=== PATIENT | female | born 1945 | race Caucasian/White ===

== ENCOUNTER 2021-11-12 06:32 | Day surgery (SDC) | payer MEDICARE, BC, SELFPAY ==
[2021-11-12] VITALS (13 sets, daily range): BP systolic 97–171; BP diastolic 59–85; PULSE 62–92; RESP 12–16; TEMP 36.4–36.7; O2SAT 91–97; BMI 25.9
[2021-11-12] MEDS: LACTATED RINGERS 1000 ML 1,000 ML 100 ML IV (07:00)
[2021-11-12] MEDS: SODIUM CHLORIDE 0.9 % (FLUSH) 10 ML SYRINGE IVF (07:20)
[2021-11-12] MEDS: CEFAZOLIN 2 GM in 0.9 % SODIUM CHLORIDE Mini-bag 100 ML IVPB (08:15)
--- NOTE | 2021-11-12 08:33 | SUR.OPER ---
Patient transfered via bed to OR2 from Same Day Surgery. Patient was assisted to OR table. Patient was covered by warm blankets x2 to provide warmth and comfort.
--- NOTE | 2021-11-12 08:47 | SUR.OPER ---
Patient trasfered via bed from Same Day Surgery to OR2. Patient was assisted to the OR bed. Patient covered by warm blankets x2 for warmth and comfort.
--- NOTE | 2021-11-12 08:48 | PM.ORPRC ---
Procedure Note Date of procedure: 11/12/21 Procedure: PREOPERATIVE DIAGNOSIS: 1. Left knee medial and lateral meniscus tear POSTOPERATIVE DIAGNOSIS: 1. Left knee medial and lateral meniscus tear PROCEDURE: 1. Left knee arthroscopic partial medial and lateral menisectomy SURGEON: Rosalino Norris M.D. [employer]OP STENOGRAPHER: Mario Mckeon PA-C. Of note, an clinical assistant was critical for this case to aid in patient positioning, knee manipulation, instrument exchange, and closure. ANESTHESIA: Spinal EBL: 2ml TOURNIQUET: 30 min at 300 torr COMPLICATIONS: None evident INDICATIONS: The patient is a pleasant 76-year-old female who has experienced left knee pain particularly with any twisting or turning. Physical exam was concerning for medial and lateral meniscus tear, this was confirmed on MRI. Additionally, attempted nonoperative management has been tried, and failed. Thus, surgery was recommended. FINDINGS: Complex tearing posterior horn to midbody medial meniscus. Crystalline deposits seen within the meniscal tissue as well. Grade 3 chondromalacia medial femoral condyle. ACL and PCL were intact. Lateral compartment showed complex tearing of the central portion posterior horn to midbody even involving the anterior horn. Posterior root was intact. Anterior root intact. Grade 2 chondromalacia lateral femoral condyle. Patellofemoral compartment showed grade 4 chondromalacia under the patella median ridge. Grade 3 chondromalacia broadly for the rest the patella. Trochlear groove was relatively well preserved. No loose bodies evident. DESCRIPTION OF PROCEDURE: After a thorough discussion of risks, benefits, and alternatives, the patient was brought to the operating room and placed upon the operating table. Induction of anesthesia was undertaken as previously noted. 1 g IV Ancef was administered within 1 hr of incision preoperatively. Appropriate time-out was performed identifying proper patient, site, and procedure. The left lower extremity was prepped and draped in the appropriate sterile fashion using ChloraPrep. The limb was exsanguinated and tourniquet inflated. Anterolateral and anteromedial portals were established with an 11 blade, and a diagnostic arthroscopy was performed. This identified the findings as noted above. Following the diagnostic arthroscopy, a partial medial and lateral menisectomy was performed with the combination of basket forceps and a motorized shaver. Following this, the meniscus was re-probed and found to be stable. Approximately 50-60 % of the overall medial meniscus required resection. Approximately 10-15 % of the lateral meniscus required resection. At this stage, the shaver was reinserted into the suprapatellar pouch and all remaining meniscal debris was evacuated. Instruments were removed, excess fluid was drained, and closure performed with 4-0 Monocryl with Steri-Strips. Dressings were applied, the tourniquet deflated, and the patient was awoken from anesthesia and transferred to the PACU in stable condition. PLAN: 1. Weightbear as tolerated operative extremity. Crutch / walker ambulation assistance PRN. Straight leg raise to be initiated starting tomorrow by the patient. 2. Ice, acetominophen and/or ibuprofen, and Percocet for pain as needed. 3. Knee range of motion and quad sets/straight leg raise regularly 4. Follow up with PA visit in 7-10 days. for a wound check. Initiate physical therapy at that time
[2021-11-12] MEDS: ROPIVACAINE 0.5% 30 ML 150 MG INJECTION (08:50)
--- NOTE | 2021-11-12 09:02 | W.ANESCHARGE ---
Anesthesia Charges Start Date/Time Anesthesia Start Date: 11/12/21 Anesthesia Start Time: 07:56 Stop Date/Time Anesthesia Stop Date: 11/12/21 Anesthesia Stop Time: 09:00 Summary Emergency: No Extremes of Age: Over 70-CPT 10131
--- NOTE | 2021-11-12 09:22 | SUR.PHASEI ---
PT. VSS, TRANSFER PT. TO SDS VIA CART.
[2021-11-12] MEDS: IBUPROFEN 200 MG TABLET 400 MG PO (10:40)
== END 2021-11-12 11:05 | disposition home or self-care (01) ==
PROVIDERS: PCP Internal Medicine; Visit Provider Orthopaedic Surgery Sports Medicine
PROC: (CPT 29870; principal; 2021-11-12 07:45)
DX: M23.242 Derangement of anterior horn of lateral meniscus due to old tear or injury, left knee (principal); M23.222 Derangement of posterior horn of medial meniscus due to old tear or injury, left knee; M23.252 Derangement of posterior horn of lateral meniscus due to old tear or injury, left knee
CPT/HCPCS: 29880; 01400; 99100; A9270; J0690; J2250; J2405; J2704; J2795; J3010; J7120

== ENCOUNTER 2021-12-30 08:45 | Outpatient (RCR) | payer MEDICARE, BC, SELFPAY ==
--- NOTE | 2021-11-21 11:56 | PT.OPEX ---
PT [place] Outpatient Eval PT [facility] Outpatient Eval Start: 11/21/21 07:26 Freq: Status: Active Protocol: Document 11/21/21 07:26 KLV (Rec: 11/21/21 11:55 KLV [id number]) E-signed By Keila Pena PT Physical Therapy Outpatient Evaluation Insurance Information Recert Due Date 02/13/22 Insurance Name Medicare B,Other; See Comments Insurance Information/Comments [place] Medical Diagnosis S/P left knee arthroscopy DOS 11/12/21 Treating Diagnosis Left knee pain, limited left knee ROM, antalgic gait, gross LE weakness Referring Mario Krishnamurthy Subjective Subjective Shirley 1 week postoperative left knee arthroscopic partial medial and lateral meniscectomy (DOS-11/12/2021). Approximately 50-60% of overall medial meniscus resected, 10-15% lateral meniscus resected. Was seen by Mario Mckeon yesterday for follow up. Denies fevers, chills, or aches. Denies numbness/tingling distally. She reports knee has felt stiff and painful to bear weight but has been using SEC (in L UE). She has been doing stairs with step to pattern. Pain is located mainly in medial aspect of knee with mild swelling noted. Goals are to be able to walk, stand, negotiate stairs and return to volunteering with [employer] without use of AD. PMH: hypertension, arthritis, osteopenia Pain Comments 4-7 depending on movement Date of Last Physician Visit 11/20/21 Date of Next Physician Visit 12/19/21 Current Work Status Retired Objective Other/Pertinent Objective Knee ROM: -L 0-12-56 -R 0-125 Quad set: good however 12 deg short of full extension SLR: able to perform x10 however 12 deg short of full extension Gait: minimal stance time L LE , mid foot strike, limited TKE , initial use of cane in L UE, transitioned to use of SEC in R UE Denies N/T distally Incisions (2 scope holes) covered with steri strips: no s/s of infection or DVT Mild swelling medial joint line Mild bruising mid medial thigh from tourniquet Stairs: step to pattern Sit to stand: L LE propped out straight, no assist at this time d/t pain Functional Test Performed & Score LEFS: 40/80 Assessment Assessment/Impression Pt presents with signs and symptoms consistent with s/p left knee arthroscopy (medial and lateral meniscectomy). DOS : 11/12/21. Anticipated deficits/impairments in pain, ROM, and strength. Pt would benefit from skilled PT interventions to facilitate return to PLOF and walk/ standing/stair negotiation without use of AD, don/doff shoes/sock, ease of transitions, return to volunteering through [employer]. Primary Functional Limitations walk/standing/stair negotiation without use of AD, return to volunteering through [employer] Plan of Care Rehabilitation Potential Good Physical Therapy Goals By 4 weeks (12/19/21) Pt will be able to ascend/ descend 1 flight of stairs in order to perform ADLs pain free. Pt will demonstrate full and pain free knee ROM in order to perform all ADLs including don/doffing shoes/socks By 8 weeks (01/16/22) Pt will exhibit 9 pt improvement in LEFS Outcome measure to demonstrate functional improvement and progress towards goals. Pt will tolerate gradual progression back to ADLs with <2/10 pain Patient will transition from cane to independent gait with normal mechanics. Patient will be able to ambulate on uneven surface and squat w/out use of AD with good mechanics in order to return to volunteering through [employer]. Treatment Plan/Direct Interventions Gait Training,Ice/Cold/ Vasopneumatic,Joint Mobilization,Manual Therapy, Neuromuscular Re-ed,Self-Care/ Home Management,Therapeutic Activities,Therapeutic Exercises Frequency/Duration 1x/wk for 6 weeks with additional 4 sessions prn based on progress Patient Will Be Discharged From Therapy Completion of LTG(s), Independent w/HEP, Independently Progressing Evaluation Billing Untimed Code Treatment Minutes 12 Complexity Low Certification Information Initial Certification Date 11/21/21 Ending Certification Date 02/13/22 Provider Signature Shows Agreement With POC & Medical Necessity Physician Comment/Change Comment or Changes Physician NPI Number #
== END 2022-03-10 13:14 | disposition home or self-care (01) ==
PROVIDERS: PCP Internal Medicine; Visit Provider Physician Assistant Surgical
DX: Z98.890 Other specified postprocedural states (principal); Z51.89 Encounter for other specified aftercare
CPT/HCPCS: 97110; 97140; 97161

== ENCOUNTER 2022-01-19 14:49 | Outpatient (CLI) | payer MEDICARE, BC, SELFPAY ==
--- NOTE | 2022-01-19 15:00 | CRLHL7_ITS ---
For Patients: As a result of the Cures Act, medical imaging exams and procedure reports are released immediately into your electronic medical record. You may view this report before your referring provider. If you have questions, please contact your health care provider. BILATERAL SCREENING MAMMOGRAM WITH COMPUTER-AIDED DETECTION AND TOMOSYNTHESIS TECHNIQUE: CC and MLO views were obtained. These mammographic images have been obtained using full-field digital technique. These mammographic images were interpreted with the benefit of computer-aided detection. Breast Tomosynthesis was used in this interpretation. COMPARISON FILM: 12/23/20, 12/13/19, 11/08/18. FINDINGS: The breasts are heterogeneously dense, which may obscure small masses IMPRESSION: There is no radiographic evidence for malignancy. ASSESSMENT: BI-RADS Category 1: Negative RECOMMENDATION: Routine screening mammogram in 1 year. A lay language report of this examination will be provided to the patient. Ramon Cortes M.D. Diagnostic/Nuclear Medicine Radiologist [email or web address] JONNA/jj Transcribed: 3:14 p.mClarisse KIANNA/Dictated by: Ramon Cortes MD @ 01/20/2022 8:14:00 AM (Electronically Signed)
== END 2022-01-19 14:50 | disposition home or self-care (01) ==
LOC: MAMMO 14:50
PROVIDERS: PCP Internal Medicine; Visit Provider Internal Medicine
DX: Z12.31 Encounter for screening mammogram for malignant neoplasm of breast (principal)
CPT/HCPCS: 77063; 77067

== ENCOUNTER 2022-09-14 07:45 | Outpatient (CLI) | payer MEDICARE, BC, SELFPAY ==
--- OUTSIDE RECORDS SUMMARY | 2022-09-14 14:49 | XMS_ITS | Continuity of Care Document ---
Author Name Unknown Organization [facility] Address [address] [place] [address] Phone Care Team Providers Care Trim Mechanic Name Role Phone Unavailable Unavailable Unavailable Allergies, Adverse Reactions, Alerts Substance Reaction Status Criticality Sulfa (Sulfonamide Antibiotics) Active No Information Sulfa (Sulfonamide Antibiotics) Active No Information Medications Medication Instructions Dosage Effective Dates (start - stop) Status Comments AMLODIPINE BESILATE (unknown strength) Not Available - Active FLUTICASONE PROPIONATE MICRO (unknown strength) Not Available - Active MODAFINIL (unknown strength) Not Available - Active MONTELUKAST SODIUM (unknown strength) Not Available - Active OMEPRAZOLE (unknown strength) Not Available - Active RALOXIFENE HCL (unknown strength) Not Available - Active Procedures Procedure Date Office/Outpatient Visit,Juliet Alvarez 2014 Advance Directives Directive Yes / No Effective Date File Name No Information Encounters Encounter Description Practice Location Reason(s) For Visit Diagnoses Date Provider Providers Copied on Encounter [facility], [address], [place], [place], [id number], [place] tel:[phone] [facility] [place] No Information 3201 5 No Information Referring Provider: Benito Jarrett [facility] [address] [place], [address]. 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 tel:[phone] Family History Family Member Type Diagnosis Age At Onset No Information Payers Payer name Insurance type Covered alliance party ID Meng snow(s) [facility] [id number] Medicare Hal MARTINEZ [id number] Social History Type Description Quantity Date Captured Comments Alcohol Use Details Unknown Caffeine Use Details Unknown Tobacco Use Status No Information Smoking Status No Information Sex Female Chief Complaint And Reason For Visit No Information Reason For Referral Reason For Referral No Information Plan Of Treatment Date Type Action Status No Information History Of Present Illness Encounter Date Complaint History Of Prese nt Illness No Information Functional Status Date Functional Assessmen t No Information Instructions Date Instruction Additional Infor mation No Information Assessments Type Assessment Date No Information Patient Care Teams Name Effective Dates (start - stop) Status Members No Information
== END 2022-09-14 07:46 | disposition home or self-care (01) ==
LOC: NFLDREF 14:48
PROVIDERS: PCP Internal Medicine; Referring Provider Internal Medicine; Visit Provider Internal Medicine
DX: E78.5 Hyperlipidemia, unspecified (principal)
CPT/HCPCS: 80053; 80061

== ENCOUNTER 2023-02-16 15:06 | Outpatient (CLI) | payer MEDICARE, BC, SELFPAY ==
--- OUTSIDE RECORDS SUMMARY | 2023-02-16 15:09 | XMS_ITS | Continuity of Care Document ---
Author Name Unknown Organization [facility] Address [address] [place] [address] Phone Care Team Providers Care Crew Lead Name Role Phone Unavailable Unavailable Unavailable Allergies, [...] on Encounter [facility], [address], [place], [place], [id number], [place] tel:[phone] [facility] [place] No Information 3201 5 No Information Referring Provider: Benito Jarrett [facility] [address] [place], [address]. 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 tel:[phone] Family History Family Member Type Diagnosis Age At Onset No Information Payers Payer name Insurance type Covered green party ID Meng snow(s) [facility] [id number] Medicare Hal MARTINEZ [id number] Social History Type Description Quantity Date Captured Comments Alcohol Use Details Unknown Caffeine Use Details Unknown Tobacco Use Status No Information Smoking Status No Information Sex Female Chief Complaint And Reason For Visit No Information Reason For Referral Reason For Referral No Information History Of Present Illness Encounter Date Complaint History Of Prese nt Illness No Information Functional Status Date Functional Assessmen t No Information Instructions Date Instruction Additional Infor mation No Information Assessments Type Assessment Date No Information Patient Care Teams Name Effective Dates (start - stop) Status Members No Information
--- NOTE | 2023-02-16 15:20 | CRLHL7_ITS ---
For Patients: As a result of the Cures Act, medical imaging exams and procedure reports are released immediately into your electronic medical record. You may view this report before your referring provider. If you have questions, please contact your health care provider. BILATERAL SCREENING MAMMOGRAM WITH COMPUTER-AIDED DETECTION AND TOMOSYNTHESIS TECHNIQUE: CC and MLO views were obtained. These mammographic images have been obtained using full-field digital technique. These mammographic images were interpreted with the benefit of computer-aided detection. Breast Tomosynthesis was used in this interpretation. COMPARISON FILM: 01/19/22, 12/23/20, 12/13/19. FINDINGS: There are scattered areas of fibroglandular density IMPRESSION: There is no radiographic evidence for malignancy. ASSESSMENT: BI-RADS Category 1: Negative RECOMMENDATION: Routine screening mammogram in 1 year. A lay language report of this examination will be provided to the patient. Yo Tracey M.D. Diagnostic Radiologist [email or web address] ISIAH/olivia Transcribed: 6:25 p.mClarisse baker/Dictated by: Yo Tracey MD @ 02/17/2023 1:25:00 PM (Electronically Signed)
== END 2023-02-16 15:07 | disposition home or self-care (01) ==
LOC: MAMMO 15:07
PROVIDERS: PCP Internal Medicine; Visit Provider Internal Medicine
DX: Z12.31 Encounter for screening mammogram for malignant neoplasm of breast (principal)
CPT/HCPCS: 77063; 77067

== ENCOUNTER 2023-05-10 10:19 | Outpatient (CLI) | payer MEDICARE, BC, SELFPAY | END 2023-05-10 10:20 | disposition home or self-care (01) | PROVIDERS: PCP Internal Medicine; Referring Provider Internal Medicine; Visit Provider Internal Medicine | DX: E78.5 Hyperlipidemia, unspecified (principal); I10 Essential (primary) hypertension | CPT/HCPCS: 80053; 80061 ==

== ENCOUNTER 2023-05-27 14:48 | Outpatient (CLI) | payer MEDICARE, BC, SELFPAY ==
--- NOTE | 2023-05-27 15:00 | XR_ITS ---
Patient: ROGER JAIME Facility:?[facility] Patient ID:?[id number] Site Patient ID:?[id number]. Site :?[id number] Study:?DEXA-Bone Density -05/27/2023 3:52:15 PM Ordering Physician:ANTOLIN Final Report: DXA BONE MINERAL DENSITY STUDY Reason for exam: Osteopenia. Current height (in): 62. Weight (lb): 150. Menopause age: 50. Ethnicity: White. 1. Have you had a previous hip or vertebral fracture? No. 2. Have you had any fractures during your adult life which did not result from significant trauma (e.g., auto accident)? No. 3. Did either of your parents have a hip fracture? No. 4. Do you smoke? No. 5. Have you ever taken Glucocorticoids? No. 6. Do you have rheumatoid arthritis? No. 7. Do you have secondary osteoporosis? No. 8. Do you drink 3 or more alcoholic drinks per day? No. 9. Are you being treated for osteoporosis? No. 10. Have you ever taken any of the following medications: Actonel, Evista, Fosamax, Miacalcin, Reclast, Boniva, Forteo, HRT (i.e., estrogen/hormone therapy), Protelos, Prolia, Vitamin D, Calcium, other ? please specify. ANSWER: Yes, Evista (i.e., raloxifene), Fosamax (i.e., alendronate), vitamin D, and calcium. 11. Do you have any of the following medical conditions: Anorexia or bulimia, asthma or emphysema, end stage renal disease, hyperparathyroidism, any seizure disorders, cancer, inflammatory bowel diseases, hysterectomy, other ? please specify. ANSWER: No. 12. What was your maximum height (inches)? 64. 13. Do you perform weight bearing exercise regularly? Yes. 14. Do you regularly consume dairy products? No. 15. Do you drink caffeinated beverages? Yes. If female: 16. At what age did your period start? 17. 17. Are you premenopausal? No. 18. How many full-term pregnancies have you had? 2. 19. Have you ever missed your period for more than 6 months in a row (not including or menopause)? No. TECHNIQUE: Bone mineral density study was performed using the Horizon [employer]. FINDINGS: The results of the study expressed as bone mineral density (BMD) are as follows: Lumbar spine L1 to L4: BMD: 0.907 g/cm2. T-score: -1.3. Z-score: 1.3 Neck Left: BMD: 0.630 g/cm2. T-score: -2.0. Z-score: 0.2 Right: BMD: 0.647 g/cm2. T-score: -1.8. Z-score: 0.4 Total Left: BMD: 0.775 g/cm2. T-score: -1.4. Z-score: 0.6 Right: BMD: 0.786 g/cm2. T-score: -1.3. Z-score: 0.7 IMPRESSION: Osteopenia. *Comparison exams done prior to 08/2019 were performed on different unit, test company. COMPARISON: Compared with scan of 08/08/2020, the bone mineral density has increased by 1.7 percent at the spine and decreased by 0.5 percent at the hip. Compared with scan of 07/15/2015, the bone mineral density has increased by 7.4 percent at the spine and decreased by 1.4 percent at the hip. FRAX 10-year Fracture Risk Major Osteoporotic Fracture: 14% Hip Fracture: 3.9% Reported Risk Factors: [place] () Neck BMD=0.630, BMI=27.4 Isabella Jack M.D. Body/Diagnostic Radiologist [email or web address] DEENA/olivia D& Transcribed: 12:22 p.mClarisse baker/Dictated by: Isabella Jack MD @ 05/28/2023 3:05:00 AM Signed by:?Isabella Jack MD @05/28/2023 8:18:46 PM (Electronic Signature)
== END 2023-05-27 14:49 | disposition home or self-care (01) ==
LOC: RAD 14:49
PROVIDERS: PCP Internal Medicine; Visit Provider Internal Medicine
DX: M85.80 Other specified disorders of bone density and structure, unspecified site (principal); M85.88 Other specified disorders of bone density and structure, other site
CPT/HCPCS: 77080

== ENCOUNTER 2023-06-09 12:56 | Outpatient (CLI) | payer MEDICARE, BC, SELFPAY ==
--- OUTSIDE RECORDS SUMMARY | 2023-06-18 12:07 | XMS_ITS | Clinical Summary ---
Author Name Unknown Organization [facility] Address [place], [place] [address] Care Team Providers Care Applications Administrator Name Role Phone Benito Jarrett MD Primary Care Provider [phone] Allergies Active Allergy Reactions Criticality Noted Date Comments Sulfa (Sulfonamide Antibiotics) Other - Describe In Comment Field 05/29/2015 Face swells Medications Medication Sig Dispensed Refills Start Date End Date Status amLODIPine (NORVASC) 10 mg tablet Take 1 tablet by mouth once daily. 0 05/29/2015 Active fluticasone (50 mcg per actuation) nasal solution (FLONASE) Inhale 1 [place] into both nostrils once daily. 1 Bottle 0 05/29/2015 Active modafinil (PROVIGIL) 200 mg tablet Take 1 tablet by mouth every morning. 0 05/29/2015 Active montelukast (SINGULAIR) 10 mg tablet Take 1 tablet by mouth at bedtime. 0 05/29/2015 Active omeprazole (PRILOSEC) 20 mg Delayed-Release capsule Take 1 capsule by mouth once daily before a meal. 0 05/29/2015 Active estrogens, conjugated (PREMARIN) vaginal cream Insert 1 Applicatorful into the vagina at bedtime. 0 05/29/2015 Active raloxifene (EVISTA) 60 mg tablet Take 1 tablet by mouth once daily. 0 05/29/2015 Active Wake 0-[id number]-[id number]-Kdzeyb terol 500 mg-500 mcg -1 mg-12.5 mg cap Take by mouth. Demetrius red 0 05/29/2015 Active calcium carbonate-vitamin D3, 600 mg-400 unit, (CALCIUM 600 + D) 600 mg(1,500mg) -400 unit tablet Take 1 tablet by mouth 2 times daily with meals. 0 05/29/2015 Active HYDROcodone-acetam inophen, 5-325 mg, (NORCO) per tabletIndications: Tailor's bunion, left Take 1-2 tablets by mouth every 4 hours if needed for Pain. Max acetaminophen dose: 4000 mg in 24 hrs. 60 tablet 0 05/29/2015 Active Social History Tobacco Use Types Packs/Day Years Used Date Smoking Tobacco: Never Tobacco Cessation:Counseling Given: Yes Sex and Gender Information Value Date Recorded Sex Assigned at Not on file Gender Identity Not on file Sexual Orientation Not on file Obstetrics History Last Filed Vital Signs Vital Sign Reading Time Taken Comments Blood Pressure 122/73 08/27/2015 3:52 PM CDT Pulse 76 08/27/2015 3:52 PM CDT Temperature 36.7 ??C (98 ??F) 07/02/2015 3:50 PM CDT Respiratory Rate - - Oxygen Saturation 95% 08/27/2015 3:52 PM CDT Inhaled Oxygen Concentration - - Weight 71.4 kg (157 lb 6.4 oz) 08/27/2015 3:52 P M CDT Height - - Body Mass Index - - Plan of Treatment Health Maintenance Due Date Last Done Comments Tdap 1956 Depression screening for age 12+ 1957 BMI (ht and wt on same day) for age 18+ 06/02/1963 Hepatitis C screening for age 18-79 06/02/1963 Tetanus booster 1965 Zoster (shingles) series for age 50+ (1 of 2) 06/01/18 96 DEXA/DXA scan for age 65+ 2010 Pneumococcal series for age 65+ (1 of 1 - PCV) 011 COVID-19 vaccine series ( - 2022-24 season) 3 Influenza for age 65+ 11/14/2023 Care Teams Applications Administrator Relationship Specialty Start Date End Date Benito Jarrett MD [address] [facility] [place] [address] PCP - General 09/06/13
--- OUTSIDE RECORDS SUMMARY | 2023-06-18 12:07 | XMS_ITS | Continuity of Care Document ---
Author Name Unknown Organization [facility] Address [address] [place] [address] Phone Care Team Providers Care Stone Layer Name Role Phone Unavailable Unavailable Unavailable Allergies, Adverse Reactions, Alerts Substance Reaction Status Criticality Sulfa (Sulfonamide Antibiotics) Active No Information Sulfa (Sulfonamide Antibiotics) Active No Information Medications Medication Instructions Dosage Effective Dates (start - stop) Status Comments RALOXIFENE HCL (unknown strength) Not Available - Active OMEPRAZOLE (unknown strength) Not Available - Active MONTELUKAST SODIUM (unknown strength) Not Available - Active MODAFINIL (unknown strength) Not Available - Active FLUTICASONE PROPIONATE MICRO (unknown strength) Not Available - Active AMLODIPINE BESILATE (unknown strength) Not Available - Active Procedures Procedure Date Office/Outpatient Visit,Juliet Alvarez 2014 Advance Directives Directive Yes / No Effective Date File Name No Information Encounters Encounter Description Practice Location Reason(s) For Visit Diagnoses Date Provider Providers Copied on Encounter [facility], [address], [place], [place], [id number], [place] tel:[phone] [facility] [place] No Information 3201 5 No Information Referring Provider: Benito Jarrett [facility] [address] [place], [address]. 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 tel:[phone] Family History Family Member Type Diagnosis Age At Onset No Information Payers Payer name Insurance type Covered alliance party ID Meng snow(s) [facility] [id number] Medicare Hal MARTINEZ [id number] Social History Type Description Quantity Date Captured [...]
== END 2023-06-09 12:57 | disposition home or self-care (01) ==
LOC: NFLDREF 06-11 08:27
PROVIDERS: PCP Internal Medicine; Referring Provider Internal Medicine; Visit Provider Physician Assistant
DX: N39.0 Urinary tract infection, site not specified (principal)
CPT/HCPCS: 87086

== ENCOUNTER 2023-12-09 09:32 | Outpatient (CLI) | payer MEDICARE, BC, SELFPAY ==
--- OUTSIDE RECORDS SUMMARY | 2023-12-09 09:40 | XMS_ITS | Clinical Summary ---
Author Organization [facility] Address [place], [place] [address] Care Team Providers Care Radiographer Cardiac Catheterization Name Role Phone Benito Jarrett MD Primary Care Provider Allergies Active Allergy Reactions Criticality Noted Date Comments Sulfa (Sulfonamide Antibiotics) Other - Describe In Comment Field 05/29/2015 Face swells Medications Medication Sig Dispensed Refills Start Date End Date Status amLODIPine (NORVASC) 10 mg tablet Take 1 tablet by mouth once daily. 0 05/29/2015 Active fluticasone (50 mcg per actuation) nasal solution (FLONASE) Inhale 1 [place] into both nostrils once daily. 1 Bottle [...] by mouth once daily. 0 05/29/2015 Active [place] [id number]-M4-Jvnaqi terol 500 mg-500 mcg -1 mg-12.5 mg [...] 65+ (1 of 1 - PCV) 011 RSV vaccine for adults or pr egnancy (1 - 1-dose 75+ series) 2020 COVID-19 vaccine series ( - 2023- season) 4 Influenza for age 65+ 11/14/2023 Care Teams Radiographer Cardiac Catheterization Relationship Specialty Start Date End Date Benito Jarrett MD [address] [facility] [place] [address] PCP - General 09/06/13
--- OUTSIDE RECORDS SUMMARY | 2023-12-09 09:40 | XMS_ITS | Continuity of Care Document ---
Author Organization [facility] Address [address] [place] [address] Phone Care Team Providers Care Surgical Instrument Mechanic Name Role Phone Unavailable Unavailable Unavailable [...] Copied on Encounter [facility], [address], [place], [place], [id number], [place] tel:[phone] [facility] [facility] [place] No Information 3 5 No Information Referring Provider: Benito Jarrett [facility] [address] [place], [address]. 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 tel:[phone] Family History Family Member Type Diagnosis Age At Onset No Information Payers Payer name Insurance type Covered democrat ID Meng snow(s) [facility] [id number] Medicare Hal MARTINEZ [id number] Social History Type Description Quantity Date Captured [...]
== END 2023-12-09 09:33 | disposition home or self-care (01) ==
LOC: NFLDREF 09:34
PROVIDERS: PCP Internal Medicine; Visit Provider Internal Medicine
DX: R10.9 Unspecified abdominal pain (principal); Z80.41 Family history of malignant neoplasm of ovary
CPT/HCPCS: 86304

== ENCOUNTER 2023-12-24 09:48 | Outpatient (CLI) | payer MEDICARE, BC, SELFPAY ==
--- OUTSIDE RECORDS SUMMARY | 2023-12-24 09:54 | XMS_ITS | Clinical Summary ---
Author Organization [facility] Address [place], [place] [address] Care Team Providers Care Oil Distributor Tender Name Role Phone Benito Jarrett MD Primary [...] per actuation) nasal solution (FLONASE) Inhale 1 [place] into both nostrils once daily. 1 Bottle [...] by mouth once daily. 0 05/29/2015 Active [place] [id number]-Dzguma terol 500 mg-500 mcg -1 mg-12.5 mg [...] Mass Index - - Plan of Treatment Upcoming Encounters Date Type Department Care Team (Late st Contact Info) Description 12/24/2023 10:00 AM CDT Ancillary Procedure [facility] [address] [place] [address] Health Maintenance Due Date Last Done Comments [...] Influenza for age 65+ 11/14/2023 Care Teams Oil Distributor Tender Relationship Specialty Start Date End Date Benito Jarrett MD [address] [facility] [place] [id number] PCP - General 09/06/13
--- OUTSIDE RECORDS SUMMARY | 2023-12-24 09:54 | XMS_ITS | Continuity of Care Document ---
Author Organization [facility] Address [address] [place] [address] Phone Care Team Providers Care Accreditation Manager Name Role Phone Unavailable Unavailable Unavailable Allergies, [...] Copied on Encounter [facility], [address], [place], [place], [id number], [place] tel:[phone] [facility] - [place] No Information 3 5 No Information Referring Provider: Benito Jarrett [facility] [address] [place], [address]. 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 tel:[phone] Family History Family Member Type Diagnosis Age At Onset No Information Payers Payer name Insurance type Covered constitution party ID Meng snow(s) [facility] [id number] Medicare Hal MARTINEZ [id number] Social History Type Description Quantity Date Captured [...]
--- NOTE | 2023-12-24 11:15 | CRLHL7_ITS ---
For Patients: As a result of the Century Cures Act, medical imaging exams and procedure reports are released immediately into your electronic medical record. You may view this report before your referring provider. If you have questions, please contact your health care provider. INDICATION: Unspecified abdominal pain COMPARISON: none TECHNIQUE: 2D garvin scale and color Doppler images were acquired of the pelvis using a transabdominal and transvaginal approach. FINDINGS: Sonographic images demonstrate a normal size and smooth outer contour of the uterus. Uterus measures 7.0 cm in length by 2.3 cm in AP diameter by 4.4 cm in transverse dimension. The myometrium has a heterogeneous echotexture. The endometrial lining measures 2 mm in composite thickness. Fluid is present within the endometrial canal. The right ovary measures 2.2 x 1.4 x 1.2 cm in size and the left ovary measures 2.1 x 1.2 x 1.7 cm. The ovaries demonstrate normal arterial and venous blood flow on color Doppler analysis. There are no suspicious fluid collections within the cul-de-sac. IMPRESSION: Fluid within the endometrial canal. Endometrial thickness 2 millimeters. No uterine fibroid. Dictated by Yo Tracey MD @ 12/24/2023 12:06:07 PM (Electronically Signed)
== END 2023-12-24 09:49 | disposition home or self-care (01) ==
LOC: RAD 09:49
PROVIDERS: PCP Internal Medicine; Visit Provider Internal Medicine
DX: R01.1 Cardiac murmur, unspecified (principal); I35.1 Nonrheumatic aortic (valve) insufficiency; I35.0 Nonrheumatic aortic (valve) stenosis; I51.7 Cardiomegaly; I34.0 Nonrheumatic mitral (valve) insufficiency; R10.9 Unspecified abdominal pain; R93.89 Abnormal findings on diagnostic imaging of other specified body structures
CPT/HCPCS: 76830; 76856; 93306

== ENCOUNTER 2024-02-02 07:02 | Outpatient (CLI) | payer MEDICARE, BC, SELFPAY ==
--- OUTSIDE RECORDS SUMMARY | 2024-02-02 07:04 | XMS_ITS | Continuity of Care Document ---
Author Organization [facility] Address [address] [place] [address] Phone Care Team Providers Care Seismic Prospecting Observer Name Role Phone Unavailable Unavailable Unavailable Allergies, [...] Copied on Encounter [facility], [address], [place], [place], [id number], [place] tel:[phone] [facility] - [place] No Information 3 5 No Information Referring Provider: Benito Jarrett [facility] [address] [place], [address]. 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 tel:[phone] Family History Family Member Type Diagnosis Age At Onset No Information Payers Payer name Insurance type Covered constitution party ID Meng snow(s) [facility] [id number] Medicare Hal MARTINEZ [id number] Social History Type Description Quantity Date Captured [...]
--- OUTSIDE RECORDS SUMMARY | 2024-02-02 07:04 | XMS_ITS | Clinical Summary ---
Author Organization [facility] Address [place], [place] [address] Care Team Providers Care Production Staff Worker Name Role Phone Benito Hough MD Primary Care Provider Allergies Active Allergy Reactions Criticality Noted Date Comments Sulfa (Sulfonamide Antibiotics) Other - Describe In Comment Field 05/29/2015 Face swells Medications Medication Sig Dispensed Refills Start Date End Date Status amLODIPine (NORVASC) 10 mg tablet Take 1 tablet by mouth once daily. 0 05/29/2015 Active fluticasone (50 mcg per actuation) nasal solution (FLONASE) Inhale 1 [place] into both nostrils once daily. 1 Bottle [...] by mouth once daily. 0 05/29/2015 Active [place] [id number]-Wwiqay terol 500 mg-500 mcg -1 mg-12.5 mg [...] 24 hrs. 60 tablet 0 05/29/2015 Active Encounters Date Type Department Care Team Description 12/24/2023 10:00 AM CDT Ancillary Procedure [facility] [address] [place] [address] from Last 3 Months Social History Tobacco Use Types Packs/Day Years [...] 76 08/27/2015 3:52 PM CDT Temperature 36.7 C (98 F) 07/02/2015 3:50 PM CDT Respiratory Rate - - Oxygen Saturation 95% 08/27/2015 3:52 PM CDT Inhaled Oxygen Concentration - - Weight 71.4 kg (157 lb 6.4 oz) 08/27/2015 3:52 P M CDT Height - - Body Mass Index - - Plan of Treatment Upcoming Encounters Date Type Department Care Team (Late st Contact Info) Description 02/03/2024 9:30 AM METAL MINER Office Visit [facility] [address] [place] [address] [place] Finn MD [address] [place] [address] Health Maintenance Due Date Last Done Comments [...] season) 4 Influenza for age 65+ 11/14/2023 Procedures Procedure Name Priority Date/Time Associated Diagnosis Comments ECHO TTE COMPLETE WO CONTRAST Routine 12/24/2023 10:56 AM CDT Cardiac murmur, unspecified from Last 3 Months Results * ECHO TTE COMPLETE WO CONTRAST (12/24/2023 10:56 AM CDT) AORTIC VALVE MEAN PG 16 mmHg EJECTION FRACTION 65 % PEAK TR VELOCITY 2.7 m/s LVEDD 3.7 cm Anatomical Region Laterality Modality Ultrasound 12/24/2023 10:0 3 AM CDT Narrative 12/24/2023 11:20 AM CDT ECHOCARDIOGRAM ROGER GRANGER : 1945 78 years Study Date: 12/24/2023 10:03:53 AM Gender: F BP: 183/81 mmHg Height: 157.00 cm BSA: 1.69 m Weight: 68.00 kg Tech: [facility] Referring MD: BENITO HOUGH Site: [facility] Reading Location: Mobile OP Patient Location: Outpatient. Procedure: 2D, Color Doppler and Spectral Doppler. Indication for study: Cardiac murmur, unspecified Cardiac Rhythm: Regular and normal sinus.Study quality: Fair. Final Impressions: 1. Normal left ventricular size, moderately increased wall thickness, normal global systolic function, calculated EF of 65 %. 2. Right ventricular cavity size is normal, global systolic RV function is normal. 3. The aortic valve is trileaflet and sclerotic, mild stenosis and mild regurgitation. The aortic valve peak velocity is 2.6 m/s, the peak gradient is 28 mmHg, and the mean gradient is 16 mmHg. The aortic valve area is 1.53 cm with a dimensionless index of 0.60. The stroke volume index is 56.3 ml/m . 4. The mitral valve is sclerotic, trace mitral regurgitation. 5. Moderately enlarged left atrium. Comparison There are no prior studies on this patient for comparison purposes. Chamber Sizes and Function Normal left ventricular size, moderately increased wall thickness, normal global systolic function, calculated EF of 65 %. No resting regional wall motion abnormality visualized. Left atrial size is moderately enlarged. Right ventricular cavity size is normal, global systolic RV function is normal. RV wall thickness is normal. The right atrium is normal. Right atrial volume index is 21 ml/m . Right atrial area is 14 cm . The pulmonary artery is of normal size and origin. The sinus of Valsalva is normal sized. The ascending aorta is normal sized. Valves, RV Pressures and Diastolic Function The aortic valve is trileaflet and sclerotic, mild stenosis and mild regurgitation. The mitral valve is sclerotic, trace mitral regurgitation. Mitral annular calcification is present. Indeterminate pattern of LV diastolic filling. The tricuspid valve is normal in structure. Tricuspid regurgitation is mild regurgitation. The tricuspid regurgitant velocity is 2.7 m/s, the estimated right ventricular systolic pressure is 29 mmHg plus right atrial pressure. There is normal estimated pulmonary pressure by tricuspid regurgitation velocity and right atrial pressure. The pulmonic valve is not well visualized. Unable to determine pulmonary regurgitation. Masses, Effusion, Shunts There is no pericardial effusion. The inferior vena cava is normal sized, respiratory size variation greater than 50%. No left to right shunting was detected by limited color flow Doppler interrogation of the interatrial septum. MEASUREMENTS AND CALCULATIONS 2-D Measurements and LV Function: LVID (d) 3.7 cm Planimetered EF 65 % LVID (s) 2.1 cm LV FS% (2D) 43 % IVS (d) 1.4 cm LVOT diameter 1.8 cm LVPW (d) 1.1 cm HR 74 bpm Ao Sinus 3.3 cm LA Vol index 47 ml/m2 Asc Ao 3.8 cm RA Vol index 21 ml/m2 RA area 14 cm RV Max 4C (d) 3.9 cm Diastology: Mitral Tissue Doppler E Peak 1.2 m/s e', Septum 0.05 m/s A Peak 1.4 m/s e', Lateral 0.07 m/s E/A 0.8 E/e' Average 19.66 DT 297 msec Aortic Valve: Vmax 2.6 m/s RIAN (V) 1.49 cm AI P 1/2 580 msec VTI 0.62 m RIAN (I) 1.53 cm LVOT V max 1.5 m/s Max PG 28 mmHg LVOT VTI 0.37 m Mean PG 16 mmHg SV 95 ml Dim Index 0.60 SV index 56 ml/m CO 7.0 l/min CI 4.2 l/min/m Mitral Valve: MVA 2.6 cm MV P 1/2 86 msec MV Mean G 4 mmHg MV VTI 0.47 m Tricuspid Valve and estimated PA pressures: TR Vmax 2.7 m/s TAPSE 3.1 cm TR maxG 29 mmHg . This study was interpreted by an [facility] accredited facility. CC: [facility] (med records) [facility]. Final Procedure Note Que Fry MD - 12/24/2023 ECHOCARDIOGRAM ROGER GRANGER : 1945 78 years Study Date: 12/24/2023 10:03:53 AM Gender: F BP: 183/81 mmHg Height: 157.00 cm BSA: 1.69 m Weight: 68.00 kg Tech: [facility] Referring MD: BENITO HOUGH Site: [facility] Reading Location: Mobile OP Patient Location: Outpatient. Procedure: 2D, Color Doppler and Spectral Doppler. Indication for study: Cardiac murmur, unspecified Cardiac Rhythm: Regular and normal sinus.Study quality: Fair. Final Impressions: 1. Normal left ventricular size, moderately increased wall thickness,normal global systolic function, calculated EF of 65 %. 2. Right ventricular cavity size is normal, global systolic RV functionis normal. 3. The aortic valve is trileaflet and sclerotic, mild stenosis and mildregurgitation. The aortic valve peak velocity is 2.6 m/s, the peakgradient is 28 mmHg, and the mean gradient is 16 mmHg. The aortic valvearea is 1.53 cm with a dimensionless index of 0.60. The stroke volumeindex is 56.3 ml/m . 4. The mitral valve is sclerotic, trace mitral regurgitation. 5. Moderately enlarged left atrium. Comparison There are no prior studies on this patient for comparison purposes. Chamber Sizes and Function Normal left ventricular size, moderately increased wall thickness, normalglobal systolic function, calculated EF of 65 %. No resting regional wallmotion abnormality visualized. Left atrial size is moderately enlarged.Right ventricular cavity size is normal, global systolic RV function isnormal. RV wall thickness is normal. The right atrium is normal. Rightatrial volume index is 21 ml/m . Right atrial area is 14 cm . Thepulmonary artery is of normal size and origin. The sinus of Valsalva isnormal sized. The ascending aorta is normal sized. Valves, RV Pressures and Diastolic Function The aortic valve is trileaflet and sclerotic, mild stenosis and mildregurgitation. The mitral valve is sclerotic, trace mitral regurgitation.Mitral annular calcification is present. Indeterminate pattern of LVdiastolic filling. The tricuspid valve is normal in structure. Tricuspidregurgitation is mild regurgitation. The tricuspid regurgitant velocity is2.7 m/s, the estimated right ventricular systolic pressure is 29 mmHg plusright atrial pressure. There is normal estimated pulmonary pressure bytricuspid regurgitation velocity and right atrial pressure. The pulmonicvalve is not well visualized. Unable to determine pulmonaryregurgitation. Masses, Effusion, Shunts There is no pericardial effusion. The inferior vena cava is normal sized,respiratory size variation greater than 50%. No left to right shunting wasdetected by limited color flow Doppler interrogation of the interatrialseptum. MEASUREMENTS AND CALCULATIONS 2-D Measurements and LV Function: LVID (d) 3.7 cm Planimetered EF 65 % LVID (s) 2.1 cm LV FS% (2D) 43 % IVS (d) 1.4 cm LVOT diameter 1.8 cm LVPW (d) 1.1 cm HR 74 bpm Ao Sinus 3.3 cm LA Vol index 47 ml/m2 Asc Ao 3.8 cm RA Vol index 21 ml/m2 RA area 14 cm RV Max 4C (d) 3.9 cm Diastology: Mitral Tissue Doppler E Peak 1.2 m/s e', Septum 0.05 m/s A Peak 1.4 m/s e', Lateral 0.07 m/s E/A 0.8 E/e' Average 19.66 DT 297 msec Aortic Valve: Vmax 2.6 m/s RIAN (V) 1.49 cm AI P 1/2 580 msec VTI 0.62 m RIAN (I) 1.53 cm LVOT V max 1.5 m/s Max PG 28 mmHg LVOT VTI 0.37 m Mean PG 16 mmHg SV 95 ml Dim Index 0.60 SV index 56 ml/m CO 7.0 l/min CI 4.2 l/min/m Mitral Valve: MVA 2.6 cm MV P 1/2 86 msec MV Mean G 4 mmHg MV VTI 0.47 m Tricuspid Valve and estimated PA pressures: TR Vmax 2.7 m/s TAPSE 3.1 cm TR maxG 29 mmHg . This study was interpreted by an [facility] accredited facility. CC: [facility] (med records) [facility]. Final Benito Hough MD ECHO ORD from Last 3 Months Care Teams Production Staff Worker Relationship Specialty Start Date End Date Benito Hough MD [address] [place], [place] [id number] PCP - General 09/06/13
--- NOTE | 2024-02-02 07:15 | CRLHL7_ITS ---
For Patients: As a result of the Century Cures Act, medical imaging exams and procedure reports are released immediately into your electronic medical record. You may view this report before your referring provider. If you have questions, please contact your health care provider. INDICATION: Low back pain. Lumbar radiculopathy. TECHNIQUE: Noncontrast MRI of the lumbar spine is performed in the usual fashion. COMPARISON: From October 06, 2013. FINDINGS: There has been interval development of minimal degenerative anterolisthesis of L4 on 5 and L5 on S1. Remainder of the lumbar spine demonstrates normal overall stature, alignment and intrinsic marrow signal. Conus is within normal limits. T12-L1, L1-2: Unremarkable. L2-3: There has been interval development of a mild broad-based posterior disc bulge with mild bilateral facet arthropathy resulting in mild central canal and bilateral lateral recess narrowing with no foraminal narrowing. L3-4: Worsening mild to moderate bilateral facet arthropathy with mild broad-based posterior disc bulge resulting in worsening moderate bilateral lateral recess narrowing with likely compression of the traversing L4 nerve roots. Worsening [id number] central canal narrowing with no foraminal narrowing. L4-5: Moderate to severe bilateral facet arthropathy is mild broad-based posterior disc bulge results in no foraminal narrowing. Moderate bilateral recess narrowing has worsened with compression of the traversing L5 nerve roots. Mild central canal narrowing. L5-S1: Worsening severe bilateral facet arthropathy with worsening moderate bilateral recess narrowing compression of the traversing S1 nerve roots. Mild central canal narrowing has worsened since the prior study. Neural foramina are patent. IMPRESSION: 1. Worsening moderate bilateral lateral recess narrowing at L5-S1, L4-5 and L3-4. 2. Worsening mild to moderate L3-4 central canal narrowing. 3. Milder degenerative changes within the remainder of the lumbar spine as outlined above. Dictated by Hemant Castano MD @ 02/04/2024 12:49:34 PM (Electronically Signed)
== END 2024-02-02 07:03 | disposition home or self-care (01) ==
LOC: MRI 07:02
PROVIDERS: PCP Internal Medicine; Visit Provider Family Medicine
DX: M54.50 Low back pain, unspecified (principal); M51.26 Other intervertebral disc displacement, lumbar region; M51.27 Other intervertebral disc displacement, lumbosacral region; M54.16 Radiculopathy, lumbar region
CPT/HCPCS: 72148

== ENCOUNTER 2024-03-14 06:59 | Outpatient (CLI) | payer MEDICARE, BC, SELFPAY | END 2024-03-14 07:00 | disposition home or self-care (01) | LOC: INJ CL 07:00 | PROVIDERS: PCP Internal Medicine; Visit Provider Family Medicine | DX: M54.16 Radiculopathy, lumbar region (principal); M51.369 Other intervertebral disc degeneration, lumbar region without mention of lumbar back pain or lower extremity pain | CPT/HCPCS: 62323; J0702; Q9966 ==

== ENCOUNTER 2024-03-20 10:45 | Outpatient (RCR) | payer MEDICARE, BC, SELFPAY ==
--- NOTE | 2023-12-30 17:43 | PT.OPEX ---
PT [facility] Out[facility] Eval PT [facility] Outpatient Eval Start: 12/30/23 12:59 Freq: Status: Active Protocol: Document 12/30/23 13:00 CASIE (Rec: 12/30/23 17:42 CASIE [id number]) E-signed By Rob Jensen DPT Physical Therapy Outpatient Evaluation Insurance Information Recert Due Date 03/29/24 Insurance Name Medicare B,Blue Cross/Blue Shield Medical Diagnosis lumbar radic. back program Treating Diagnosis low back pain muscle weakness Referring MD gemini Vickers Alee Rudolph comes into clinic dealing with low back pain with R sided radicular symptoms. Feels like pain and NT symptoms have been progressing over the past year . She has had bouts of back pain/symptoms before but mainly in her LLE. She has been noticing increased trouble with standing and walking, if things are really irritated while sitting as well. NT can get into foot. Can walk about a mile before increase in symptoms Objective Other/Pertinent Objective LUMBAR ROM Flexion: min loss repeated flexion: no change in symptoms Extension: max loss repeated ext: increase in back pain Right Sidebend: mod loss Left Sidebend: mod loss LE MMT WNL on L Hip flexion: R4 /5 Hip Extension: R 4-/5 Hip abduction: R 4-/5 knee extension: R 4-/5 Knee Flexion: R 4+/5 Dorsiflexion/heel walk: R 4+/5 Plantarflexion/toe walk:R 4+/5 JOINT MOBILITY/PALPATION increased tenderness with glute/piriformis palpation increased tenderness and radicular symptoms with L3-L5 central PAs SPECIAL TESTS Straight leg raise: - Crossed straight leg raise: - Slump test: - Quadrant test: + for low back pain SI/HIPI tests WILLIE - FADIR - Assessment Assessment/Impression Pt is a 78 yr old female who presents with concerns of low back pain with radicular symptoms. Patient also has notable objective findings including limited ROM, impaired balance, decreased strength also likely contributing to the problem. Patient is a good candidate for skilled therapy to target deficits described above. Skilled PT intervention is necessary for use of therapeutic exercise manual therapy, neuromuscular re- education, gait training, and therapeutic activity. Functional impairments include difficulty with: walking standing sitting. See appropriate sections of PT eval for complete list of goals and POC. D/C plan and criteria is for pt to achieve the goals as listed below or until max rehab potential is met. Pt was agreeable with plan of care and goals established. Plan of Care Rehabilitation Potential Good Physical Therapy Goals GOALS Pt will be independent with HEP within 8-10weeks to allow for independence and continued improvement past formal therapy Patient will demonstrate/ report ability to sit for 45- 60 minutes with pain level <1/ 10, to allow for personal/ community transportation within 8-10 weeks Patient will report or demonstrate the ability to have 5/5 strength in all hip and knee planes for household and recreational activity within 8-10 weeks. Patient will demonstrate/ report ability to walk for45- 60 minutes with pain level <1/ 10, to allow for community and household ambulation within 8 -10 weeks Coordination/Communication With Referral Source Treatment Plan/Direct Interventions Gait Training,Joint Mobilization,Manual Therapy, Neuromuscular Re-ed, Therapeutic Activities, Therapeutic Exercises Frequency/Duration 2 visits a week for 6-10 weeks Patient Will Be Discharged From Therapy Completion of LTG(s), Independent w/HEP, Independently Progressing Evaluation Billing Untimed Code Treatment Minutes 25 Complexity Low Certification Information Initial Certification Date 12/30/23 Ending Certification Date 03/29/24 Provider Signature Required Yes Provider Signature Shows Agreement With POC & Medical Necessity Physician NPI Number Write NPI# Here Physician Comment/Change : Physician Signature & Date Requested Please Sign/Date Here
== END 2024-07-18 23:59 | disposition home or self-care (01) ==
PROVIDERS: PCP Internal Medicine; Visit Provider Family Medicine
DX: M54.16 Radiculopathy, lumbar region (principal); Z51.89 Encounter for other specified aftercare
CPT/HCPCS: 97012; 97110; 97140; 97161

== ENCOUNTER 2024-03-24 11:29 | Outpatient (CLI) | payer MEDICARE, BC, SELFPAY ==
--- NOTE | 2024-03-24 11:30 | CRLHL7_ITS ---
For Patients: As a result of the Century Cures Act, medical imaging exams and procedure reports are released immediately into your electronic medical record. You may view this report before your referring provider. If you have questions, please contact your health care provider. BILATERAL SCREENING MAMMOGRAM WITH COMPUTER-AIDED DETECTION AND TOMOSYNTHESIS TECHNIQUE: CC and MLO views were obtained. These mammographic images have been obtained using full-field digital technique. These mammographic images were interpreted with the benefit of computer-aided detection. Breast tomosynthesis was used in this interpretation. COMPARISON FILM: 02/16/2023, 01/19/2022, 12/23/2020. FINDINGS: There are scattered areas of fibroglandular density. IMPRESSION: There is no radiographic evidence for malignancy. ASSESSMENT: BI-RADS Category 2: Benign RECOMMENDATION: Routine screening mammogram in 1 year. A lay language report of this examination will be provided to the patient. YO FERGUSON M.D. Diagnostic Radiologist [email or web address]/ender Transcribed: 03/27/2024, 10:[address]/Dictated by: Yo Ferguson MD @ 03/24/2024 12:08:00 PM (Electronically Signed)
== END 2024-03-24 11:30 | disposition home or self-care (01) ==
LOC: MAMMO 11:30
PROVIDERS: PCP Internal Medicine; Visit Provider Internal Medicine
DX: Z12.31 Encounter for screening mammogram for malignant neoplasm of breast (principal)
CPT/HCPCS: 77063; 77067

== ENCOUNTER 2024-10-19 15:40 | Outpatient (CLI) | payer MEDICARE, BC, SELFPAY | END 2024-10-19 15:41 | disposition home or self-care (01) | LOC: NFLDREF 10-25 12:37 | PROVIDERS: PCP Internal Medicine; Referring Provider Internal Medicine | DX: N30.00 Acute cystitis without hematuria (principal); B96.89 Other specified bacterial agents as the cause of diseases classified elsewhere | CPT/HCPCS: 87086 ==

== ENCOUNTER 2024-11-01 13:21 | Outpatient (CLI) | payer MEDICARE, BC, SELFPAY | END 2024-11-01 13:22 | disposition home or self-care (01) | LOC: NFLDREF 11-06 18:59 | PROVIDERS: PCP Internal Medicine; Referring Provider Internal Medicine | DX: N39.0 Urinary tract infection, site not specified (principal) | CPT/HCPCS: 87086 ==

== ENCOUNTER 2024-11-06 07:03 | Outpatient (CLI) | payer MEDICARE, BC, SELFPAY ==
--- NOTE | 2024-11-06 07:15 | MR_ITS ---
[address] [address] Phone:?[phone] Fax:?[phone] Referring Physician Information: Rosalino Norris M.D. [id number] [facility] [address] Phone:?[phone] Fax:?[phone] Patient:Jorje Granger D.O.B:?1945 Sex:?Female Phone:?[phone] [facility] MRN:?[id number] Exam Date:?11/06/2024 EXAM: MRI of the RIGHT SHOULDER, without contrast CLINICAL INFORMATION: Female, 79 years old, with shoulder pain INDICATION: Evaluate muscle strain or biceps tear PRIOR SURGERY: History of prior rotator cuff surgery, approximately 1994 PLAIN FILMS: Radiographs 10/24/2024 COMPARISONS: Shoulder MRI 08/28/2013 TECHNICAL INFORMATION: Using a 1.5T MR scanner and a localizing surface coil: Coronals: PD, T2FS Sagittals: PDFS, T2 Axials: PD, PDFS SEDATION: None CONTRAST: None FINDINGS: Bones: Proximal humerus: No fracture. Postoperative changes of rotator cuff repair with anchors in the greater tuberosity. No humeral Hill-Sachs or reverse Hill-Sachs lesion/impaction or contusion. Glenoid: No fracture or marrow edema/pathology. No osseous Bankart lesion. Rotator cuff and muscles/tendons: Supraspinatus: Postoperative changes of rotator cuff repair. The anterior and mid distal tendon fibers are attenuated, overall similar in appearance to the prior exam, without recurrent full-thickness tearing. The mid humeral level demonstrates more normal caliber fibers. No muscle belly atrophy. Infraspinatus: Mild to moderate infraspinatus tendinopathy, without rotator cuff tear. Teres minor: No tendinopathy, tear or atrophy. Subscapularis: Mild subscapularis tendinopathy, without rotator cuff tear. Deltoid: No strain or atrophy. Coracoacromial arch: Acromion morphology: Postoperative changes of acromioplasty. No discrete subacromial osseous spur or os acromiale. Acromiohumeral space: The acromiohumeral space is within normal limits. Coracohumeral space: The coracohumeral space is within normal limits. Acromioclavicular joint: Joint: Postoperative changes of AC joint resection. Ligaments: Coracoclavicular ligaments are intact. Bursae: Subacromial-subdeltoid: Moderate subacromial/subdeltoid bursitis. Subcoracoid: No convincing subcoracoid bursal thickening/bursitis. Biceps tendon: The intra-articular long head biceps tendon is not identified. Glenohumeral joint: Effusion/cyst: No significant glenohumeral joint effusion. Articular cartilage: Diffuse thinning of the humeral head and glenoid articular cartilage. No full-thickness chondral defects. Loose bodies: No discrete intra-articular body within the joint. Labrum:?Blunting and tearing throughout the entire superior labrum. No paralabral ganglion cyst is identified. Inferior glenohumeral ligament/axillary pouch:?Intact. The axillary pouch is normal in thickness and signal. No evidence of adhesive capsulitis or capsular injury. IMPRESSION: 1. Postoperative changes of supraspinatus tendon repair. The anterior mid distal tendon fibers are attenuated overall similar in appearance the prior exam, without recurrent full-thickness tearing. Normal-caliber fibers are seen at the level of the mid humeral head. 2. Mild to moderate infraspinatus, and mild subscapularis tendinopathy, without rotator cuff tear. 3. Surgical changes of acromioplasty and AC joint resection, with adequate inferior decompression. 4. Blunting and tearing throughout the entire superior labrum is new from the prior exam. 5. Nonvisualization of the intra-articular long head biceps tendon may reflect surgical changes of tenotomy versus proximal rupture and retraction. 6. Minimal/mild glenohumeral joint degenerative change. KME Electronically signed on 11/09/2024 8:04:00 AM by Maddison Stark M.D.
== END 2024-11-06 07:04 | disposition home or self-care (01) ==
LOC: MRI 07:05
PROVIDERS: PCP Internal Medicine; Visit Provider Orthopaedic Surgery Sports Medicine
DX: M25.511 Pain in right shoulder (principal); S46.211A Strain of muscle, fascia and tendon of other parts of biceps, right arm, initial encounter; S43.431A Superior glenoid labrum lesion of right shoulder, initial encounter; M19.011 Primary osteoarthritis, right shoulder
CPT/HCPCS: 73221

== ENCOUNTER 2024-11-29 07:49 | Outpatient (CLI) | payer MEDICARE, BC, SELFPAY | END 2024-11-29 07:50 | disposition home or self-care (01) | LOC: NFLDREF 12-04 18:12 | PROVIDERS: PCP Internal Medicine; Referring Provider Internal Medicine; Visit Provider Internal Medicine | DX: R39.89 Other symptoms and signs involving the genitourinary system (principal); N39.0 Urinary tract infection, site not specified | CPT/HCPCS: 87086 ==

== ENCOUNTER 2024-12-08 07:51 | Outpatient (CLI) | payer MEDICARE, BC, SELFPAY | END 2024-12-08 07:52 | disposition home or self-care (01) | LOC: RAD 07:51 | PROVIDERS: PCP Internal Medicine; Visit Provider Internal Medicine Cardiovascular Disease | DX: R01.1 Cardiac murmur, unspecified (principal); I35.0 Nonrheumatic aortic (valve) stenosis; I35.1 Nonrheumatic aortic (valve) insufficiency; I34.0 Nonrheumatic mitral (valve) insufficiency; I07.1 Rheumatic tricuspid insufficiency; E78.5 Hyperlipidemia, unspecified | CPT/HCPCS: 80053; 80061; 93306 ==

== ENCOUNTER 2024-12-12 06:46 | Outpatient (CLI) | payer MEDICARE, BC, SELFPAY | END 2024-12-12 06:47 | disposition home or self-care (01) | PROVIDERS: PCP Internal Medicine; Visit Provider Family Medicine | DX: M54.16 Radiculopathy, lumbar region (principal); M51.360 Other intervertebral disc degeneration, lumbar region with discogenic back pain only | CPT/HCPCS: 62323; J0702; Q9966 ==

== ENCOUNTER 2025-01-09 14:45 | Outpatient (RCR) | payer MEDICARE, BC, SELFPAY ==
--- NOTE | 2024-11-21 10:12 | PT.OPEX ---
PT [place] Outpatient Eval PT [facility] Outpatient Eval Start: 11/20/24 17:13 Freq: Status: Active Protocol: Document 11/20/24 17:13 AMELIA (Rec: 11/20/24 17:19 AMELIA [id number]) E-signed By Lucia Pierre DPT Physical Therapy Outpatient Evaluation Insurance Information Recert Due Date 02/18/25 Insurance Name Medicare B Medical Diagnosis R RC tendinopathy Rupture R biceps tendon Treating Diagnosis R shoulder pain, R shoulder tightness/stiffness, R shoulder weakness, impaired posture Imaging Report R shoulder MRI 11/06/24: Information IMPRESSION: 1. Postoperative changes of supraspinatus tendon repair . The anterior mid distal tendon fibers are attenuated overall similar in appearance the prior exam, without recurrent full-thickness tearing. Normal-caliber fibers are seen at the level of the mid humeral head. 2. Mild to moderate infraspinatus, and mild subscapularis tendinopathy, without rotator cuff tear. 3. Surgical changes of acromioplasty and AC joint resection, with adequate inferior decompression. 4. Blunting and tearing throughout the entire superior labrum is new from the prior exam. 5. Nonvisualization of the intra-articular long head biceps tendon may reflect surgical changes of tenotomy versus proximal rupture and retraction. 6. Minimal/mild glenohumeral joint degenerative change. Subjective Subjective Patient reports chronic R shoulder pain. States she had R RCR surgery about 25 years ago. She is having increased pain with certain activities that involved extended use of her UEs in reaching or elevated positions. Patient reports flare ups of pain with driving, use of sewing machine, doing puzzles/legos activities. She gets relief of her pain/sx once arms are relaxed and resting again. 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 Patient reports using anti-inflammatory med regularly for years. She has also been using an icy hot ointment on her R shoulder which feels good. Hasn' t been using ice/heating pad. She has not been doing any shoulder exercises. Reports starting chair yoga about 3 weeks ago. Patient had an MRI a couple of weeks ago, reports it showed tendinitis. States MD did not think an injection would be helpful, referred to PT. Pain range 0-9/10. Pain rated 6-9/10 with extended use of R shoulder for lifting/reaching/ elevated positions. Patient is R handed. Date of Last 11/10/24 Physician Visit Current Work Status Retired Precautions Treatment HX R RCR about 25 years ago. Hx heart murmur, HTN, OA Precautions/ R shoulder MRI 11/06/24: Contraindications IMPRESSION: 1. Postoperative changes of supraspinatus tendon repair . The anterior mid distal tendon fibers are attenuated overall similar in appearance the prior exam, without recurrent full-thickness tearing. Normal-caliber fibers are seen at the level of the mid humeral head. 2. Mild to moderate infraspinatus, and mild subscapularis tendinopathy, without rotator cuff tear. 3. Surgical changes of acromioplasty and AC joint resection, with adequate inferior decompression. 4. Blunting and tearing throughout the entire superior labrum is new from the prior exam. 5. Nonvisualization of the intra-articular long head biceps tendon may reflect surgical changes of tenotomy versus proximal rupture and retraction. 6. Minimal/mild glenohumeral joint degenerative change. Assessment Assessment/ Patient is a 79 year old female with chronic R shoulder Impression pain, R shoulder tightness/stiffness, R shoulder weakness, impaired posture. She has hx of R RCR about 25 years ago. Patient had R shoulder MRI 11/06/24 with the following results: 1. Postoperative changes of supraspinatus tendon repair. The anterior mid distal tendon fibers are attenuated overall similar in appearance the prior exam, without recurrent full- thickness tearing. Normal-caliber fibers are seen at the level of the mid humeral head. 2. Mild to moderate infraspinatus, and mild subscapularis tendinopathy, without rotator cuff tear. 3. Surgical changes of acromioplasty and AC joint resection, with adequate inferior decompression. 4. Blunting and tearing throughout the entire superior labrum is new from the prior exam. 5. Nonvisualization of the intra-articular long head biceps tendon may reflect surgical changes of tenotomy versus proximal rupture and retraction. 6. Minimal/mild glenohumeral joint degenerative change. R shoulder pain rated 0-9/ 10. Patient reports increased pain with extended use of R shoulder/UE for reaching, lifting, or holding arms in elevated positions as needed for driving, use of sewing maching, and when doing puzzles/legos. Patient with impaired posture, forward head, rounded shoulders. She is tight, tender with palpation R anterior shoulder region, along lateral shoulder/RC tendons, UT/ supraspinatus, and posterior shoulder. R shoulder AROM : flex 160 degrees, abd/scap 160 degrees, ER with hand behind upper back to upper T spine, IR with hand behind LB to upper L/lower T spine. Patient reports tightness, stiffness, mild pain with IR reaching behind LB. R shoulder MMT: flex 4-/5, abd/scap 4/5, IR 4/5, ER 4-/5. R shoulder Speed's Test positive with mild pain and weakness. Able to initiate TE this session and issued HEP. Trial with kinesiotaping to support R shoulder and assist with improved posture/shoulder mechanics. Patient reports taping felt good, supportive. Patient would benefit from skilled PT for pain/sx management, improved R shoulder ROM/mobility, improved R shoulder strength/stabilization, posture/ body mechanics/shoulder mechanics training, and establishment of HEP. Plan of Care Rehabilitation Good Potential Physical Therapy 1. Decrease R shoulder pain to less than/equal to 4/10 Goals with daily/work/workout activities and with the progression of PT activities over the next 6-8 weeks. 2. Return to R shoulder AROM WFL and pain free over the next 6-8 weeks for return to daily/work/workout activities without flare up of pain. 3. Patient will be educated on posture, body mechanics , shoulder mechanics over the next 6-8 weeks for decreased stress to UBN/shoulder region, improved shoulder mechanics, and decreased shoulder pain. 4. Improve R shoulder strength/stability over the next 10-12 weeks for return to with daily/work/workout activities without flare up of pain. 5. Patient will be I with HEP within 12 weeks for progression toward above goals, ongoing self management of pain/sx, ongoing self improvements in posture/shoulder strength/mechanics, and for return to daily/work/workout activities without flare up of pain. Coordination/ Referral Source Communication With Treatment Plan/ Manual Therapy,Therapeutic Exercises Direct Interventions Frequency/Duration 1x/week Patient Will Be Completion of LTG(s),Skills Plateau,Independent w/HEP, Discharged From Independently Progressing Therapy Evaluation Billing Untimed Code 25 Treatment Minutes Complexity Moderate Certification Information Initial 11/20/24 Certification Date Ending Certification 02/18/25 Date Provider Signature Yes Required Provider Signature POC & Medical Necessity Shows Agreement With Physician NPI Number Write NPI# Here Physician Comment/ : Change Physician Signature Please Sign/Date Here & Date Requested
== END 2025-03-12 15:20 | disposition home or self-care (01) ==
PROVIDERS: PCP Internal Medicine; Visit Provider Orthopaedic Surgery Sports Medicine
DX: M67.911 Unspecified disorder of synovium and tendon, right shoulder (principal); S46.211S Strain of muscle, fascia and tendon of other parts of biceps, right arm, sequela; M54.16 Radiculopathy, lumbar region; M47.816 Spondylosis without myelopathy or radiculopathy, lumbar region; M75.81 Other shoulder lesions, right shoulder; M67.813 Other specified disorders of tendon, right shoulder; G89.29 Other chronic pain; I35.0 Nonrheumatic aortic (valve) stenosis; Z96.652 Presence of left artificial knee joint; Z51.89 Encounter for other specified aftercare; D48.5 Neoplasm of uncertain behavior of skin; L57.0 Actinic keratosis; L40.0 Psoriasis vulgaris; L82.1 Other seborrheic keratosis; L81.4 Other melanin hyperpigmentation; D18.01 Hemangioma of skin and subcutaneous tissue; Z85.528 Personal history of other malignant neoplasm of kidney
CPT/HCPCS: 62323; 97035; 97110; 97140; 97162; J0702; Q9966

== ENCOUNTER 2025-01-17 11:59 | Outpatient (CLI) | payer MEDICARE, BC, SELFPAY ==
[2025-01-17 12:04] VITALS: BP 162/81; PULSE 85; RESP 16; TEMP 37.1; O2SAT 92
--- NOTE | 2025-01-17 12:12 | PM.PROC ---
Procedure Note Time Seen by Provider: 12:20 Date Seen: 01/17/25 Provider Contact Time: 13:00 Date of procedure: 01/17/25 Will [facility] bill your pro fee for this procedure?: Yes Procedure: CRYONEUROLYSIS TREATMENT REPORT REFERRING PROVIDER: Rosalino Norris TREATMENT PROVIDER: Rosalio Conrad PREOPERATIVE DIAGNOSIS: Left knee osteoarthritis POSTOPERATIVE DIAGNOSIS: Left knee osteoarthritis? PROCEDURE: Cryoneurolysis of Multiple Sensory Nerves of the Knee ANESTHESIA: Local INDICATIONS: The patient is a very pleasant 79-year-old female patient with primary osteoarthritis involving the left knee who presents today for cryoneurolysis of multiple sensory nerves to the knee for severe knee pain.?Patient medical history was reviewed. The risks, benefits, treatment alternatives, and complications were discussed with the patient, including but not limited to bleeding, infection, nerve or tissue damage.?Informed consent was obtained. ? PRE-TREATMENT MOTOR ASSESSMENT/PAIN SCORE: Patient was able to demonstrate intact gross motor function with plantarflexion, dorsiflexion, adduction, abduction, hip flexion, and extension of the lower extremity.?Pre-treatment pain score of 8 out of 10 in the left knee. DESCRIPTION OF PROCEDURE: After obtaining informed consent, the patient was brought back to the treatment room and positioned supine on the table.?The left lower extremity was prepped with Chlorhexadine.?We began the procedure by performing our procedural pause.?Once this was completed and verified to be accurate, I began the procedure by identifying the nerves with the use of bedside ultrasound.?After the nerves were identified, the skin was marked and, using 1% lidocaine plain, the area of the nerves were anesthetized. ? After the anesthetic was administered, the Smart Tip 2190 cryoneurolysis needle was inserted into the treatment sites using ultrasound guidance.?Treatment was then initiated on the left lower extremity with the following nerves treated: Superior, superior medial, superior lateral, inferior medial genicular nerves and the infrapatellar branch of the saphenous nerve. At the termination of the treatment, the cryoneurolysis needle was removed with the patient's skin cleansed and Band-Aids and compression dressing applied. Patient tolerated the procedure without any incident or concern.? Patient was then instructed to stand, mobilize the joint, and was examined to ensure gross motor skills were intact. COMPLICATIONS: None POST-TREATMENT PAIN SCORE: 0 out of 10 in the left knee DISPOSITION: Discharge instructions were given to the patient with education on the post-procedure expectations. Patient was instructed to call the Ortho clinic with any post-procedure concerns or questions.
[2025-01-17 13:09] VITALS: BP 176/81; PULSE 75; RESP 16; O2SAT 91
[2025-01-17 13:14] VITALS: BP 167/77
== END 2025-01-17 13:17 | disposition home or self-care (01) ==
LOC: OP CLINIC 12:00
PROVIDERS: PCP Internal Medicine; Visit Provider Nurse Anesthetist, Certified Registered
DX: M17.12 Unilateral primary osteoarthritis, left knee (principal)
CPT/HCPCS: 64640; 76942; C9809

== ENCOUNTER 2025-01-29 08:44 | Day surgery (SDC) | payer MEDICARE, BC, SELFPAY ==
[2025-01-29] VITALS (25 sets, daily range): BP systolic 103–166; BP diastolic 58–92; PULSE 68–96; RESP 12–18; TEMP 35.6–36.8; O2SAT 90–99; BMI 27.5
[2025-01-29] MEDS: LACTATED RINGERS 1000 ML 1,000 ML 100 ML IV ×2 (09:00→11:00)
[2025-01-29] MEDS: SODIUM CHLORIDE 0.9 % (FLUSH) 10 ML SYRINGE IVF (09:00)
[2025-01-29] MEDS: ACETAMINOPHEN 500 MG TABLET 1000 MG PO ×2 (09:25→19:43)
[2025-01-29] MEDS: OXYCODONE (CR) 10 MG TAB.ER.12H PO (09:25)
--- NOTE | 2025-01-29 09:51 | SUR.PREOP ---
TIME?OUT:?0952 PT/RN/MDA?VERIFICATION?OF?SURGICAL?SITE-LEFT KNEE,?PROCEDURE,?NERVE BLOCK, AND?CONSENT OBTAINED?PRIOR?TO?INVASIVE?PROCEDURE.
[2025-01-29] MEDS: MIDAZOLAM HCL 1 MG/ML inj IVP (09:53)
--- NOTE | 2025-01-29 10:43 | W.PM.H&PU ---
History & Physical Update History & Physical Update H&P Reviewed and patient assessed: No changes noted
[2025-01-29] MEDS: TRANEXAMIC ACID 100 MG/ML INJ 1000 MG IV (10:45)
--- NOTE | 2025-01-29 10:45 | CRLHL7_ITS ---
For Patients: As a result of the Cures Act, medical imaging exams and procedure reports are released immediately into your electronic medical record. You may view this report before your referring provider. If you have questions, please contact your health care provider. Indication: Postop Technique: Two views left knee Findings/Impression: Hardware from a left total knee arthroplasty is in satisfactory position. Bone alignment is normal. No sign of acute fracture. Postop changes are within normal limits. Dictated by Yo Tracey MD @ 01/29/2025 3:32:52 PM (Electronically Signed)
--- NOTE | 2025-01-29 10:57 | P.ANES_ITS ---
Anesthesia Charges Start Date/Time Anesthesia Start Date: 01/29/25 Anesthesia Start Time: 10:20 Stop Date/Time Anesthesia Stop Date: 01/29/25 Anesthesia Stop Time: 13:03 Summary Extremes of Age - Over 70 or under 1: TIME STUDY STATISTICIAN Coding CPT Codes CPT Codes: ANESTH KNEE ARTHROPLASTY - 90167 ([id number]) P3 - PATIENT W/SEVERE SYS DISEASE, QK - EMERGENCY MEDICAL TECHNICIAN 2-4 CNCRNT ANES PROC, QX - TIME STUDY STATISTICIAN SVC W/ MD MED DIRECTION Additional Codes: Summary - Extremes of Age - Over 70 or under 1: TIME STUDY STATISTICIAN ([id number])
--- NOTE | 2025-01-29 10:57 | W.ANESCHARGE ---
Anesthesia Charges Start Date/Time Anesthesia Start Date: 01/29/25 Anesthesia Start Time: 10:20 Stop Date/Time Anesthesia Stop Date: 01/29/25 Anesthesia Stop Time: 13:03 Summary Extremes of Age - Over 70 or under 1: FOREST PATHOLOGIST Coding CPT Codes CPT Codes: ANESTH KNEE ARTHROPLASTY - 24351 ([id number]) P3 - PATIENT W/SEVERE SYS DISEASE, QK - BOLT SAWYER 2-4 CNCRNT ANES PROC, QX - FOREST PATHOLOGIST SVC W/ MD MED DIRECTION Additional Codes: Summary - Extremes of Age - Over 70 or under 1: FOREST PATHOLOGIST ([id number])
--- NOTE | 2025-01-29 12:12 | P.ORPRC_ITS ---
Procedure Note Date of procedure: 01/29/25 Procedure: PREOPERATIVE DIAGNOSIS: 1. Left knee osteoarthritis, primary, severe POSTOPERATIVE DIAGNOSIS: 1. Left knee osteoarthritis, primary, severe PROCEDURE: 1. Left total knee arthroplasty - subvastus; no tourniquet; cemented SURGEON: Rosalino Norris MD. DESKTOP SUPPORT MANAGER: Mario Mckeon PA-C - Of note, a skilled medical laboratory assistant was critical for this case to aid in patient positioning, tissue retraction, limb manipulation/positioning, and closure. ANESTHESIA: Spinal anesthetic EBL: 100 mL IMPLANTS: DePuy J&J all cemented TKA - Attune PS femur size 6 narrow Size 4 tibia 5 mm poly spacer 32 mm patella TOURNIQUET: None COMPLICATIONS: None evident INDICATIONS: The patient is a pleasant 79-year-old female who has experienced severe left knee pain and difficulty bearing weight. Workup included x-rays which revealed severe osteoarthrosis in the knee. Given the deformity, the dysfunction, and the pain, as well as the failure of nonoperative management, recommendation was made for surgery. FINDINGS: Full-thickness chondral loss diffusely throughout the medial compartment. To lesser degree patellofemoral and lateral compartments as well. Small effusion upon entering the joint. Degenerative meniscus pathology both medially and laterally. DESCRIPTION OF PROCEDURE: Following a thorough discussion of risks, benefits, and alternatives consent was obtained and the left knee was marked. The patient was brought to the operating room and placed supine on the operating table. Induction of anesthesia was undertaken. 1 g IV Ancef and 1 g tranexamic acid was administered within 1 hr of incision preoperatively. Proper time-out was performed identifying proper patient, site, procedure. The operative extremity was prepped and draped in the appropriate sterile fashion using ChloraPrep after the patient was positioned supine with all bony prominences well padded. A longitudinal, anterior, midline skin incision was made starting approximately 3cm proximal to the superior pole of the patella and advanced distal to the tibial tubercle. A subvastus approach was utilized. A medial subperiosteal sleeve was created with knife, brar elevator and curved osteotome. The retropatellar fatpad was resected and the synovium in the suprapatellar pouch excised to visualize the anterior femoral cortex. Femoral preparation was performed via an intramedullary guide. Step drill allowed access into the femoral canal. The distal cutting guide was placed with 5? of valgus and 11 mm cut on the distal femur due to a 5-7 ?+ flexion contracture. Femur was sized using a posterior referencing guide in 3? of external rotation. This found have a best fit with the sizing noted above. The 4 in 1 cutting block was then placed, and the distal femur shaped accordingly. The box cut was then created and the trial implant inserted to confirm appropriate fit. We turned our attention to the proximal tibia. Extramedullary guide was utilized for cutting with the goal of being 90 degree cut from the mechanical axis of the tibia in the varus/valgus plane utilizing tibial crest as the primary alignment. Initially a 2 mm resection was performed from the medial tibial plateau. Ultimately, balancing was achieved in both flexion and extension in both varus and valgus. The knee was able to achieve full extension as well comfortably. The patella was initially measured and found have a thickness of 22 mm. It was resected back to approximately 14 mm. It was sized to be a best fit with as noted above. This was drilled, trial placed. All trials were placed and found to have an excellent stability and balance. At this stage, trial implants were removed, the knee was thoroughly irrigated with normal saline, and the cement was mixed. After irrigation, the knee was thoroughly dried, and cement placed, with the real tibial and femoral implants placed along with the patella. Trial poly spacer was placed and confirmed to have excellent range of motion and full extension, and the real poly spacer opened and inserted. All extra cement was removed, and a 3 min Betadine soak performed. Finally, a final irrigation round with normal saline was performed. Closure performed with 0 PDS and #0 Stratafix for the quad tendon/retinaculum. 2-0 Vicryl/Stratafix for the subcutaneous and 4-0 Monocryl for subcuticular closure. Dressings were applied and the patient was awoken from anesthesia after the tourniquet deflated and transferred the PACU in stable condition. A skilled medical laboratory assistant was critical for this case to aid in patient positioning, tissue retraction, bone exposure, limb manipulation/positioning, patient safety, and closure. PLAN: 1. Weight bear as tolerated operative extremity. 2. 23 hr perioperative antibiotics. 3. Ice. 4. PT/OT consults for ambulation assistance/mobility education. 5. Social work consult for discharge planning. 6. DVT prophylaxis with at SCDs and aspirin twice daily.
--- NOTE | 2025-01-29 13:25 | P.ANES_ITS ---
Anesthesia Charges Start Date/Time Anesthesia Start Date: 01/29/25 Anesthesia Start Time: 10:20 Stop Date/Time Anesthesia Stop Date: 01/29/25 Anesthesia Stop Time: 13:03 Summary Extremes of Age - Over 70 or under 1: MDA Coding CPT Codes CPT Codes: ANESTH KNEE ARTHROPLASTY - 50464 ([id number]) QK - DRY WALL FINISHER 2-4 CNCRNT ANES PROC, QX - AMMONIA STILL OPERATOR SVC W/ MD MED DIRECTION, P3 - PATIENT W/SEVERE SYS DISEASE Additional Codes: Summary - Extremes of Age - Over 70 or under 1: MDA ([id number])
--- NOTE | 2025-01-29 13:30 | P.NB_ITS ---
Nerve Block Nerve Block Time Seen by Provider: 10:00 Date Seen: 01/29/25 Type of block requested by surgeon for post-operative analgesia: geniculars Side: left Time out performed: Yes Verification of patient name: Yes Verification of date of : Yes Site marking: site marked Name of person performing procedure: [place] Continuous monitoring Was continuous monitoring of O2 sat, B/P, playground monitor, recorded every 15 minutes?: Yes Procedure Checklist: sterile prep, needles and gloves Ultrasound guided. Images saved: Yes Medications given in 5ml increments after negative aspiration: Marcaine %: 0.25 mL: 9 Needle gauge: 25 Patient tolerated procedure well: Yes Block Charges Block Charge (with Pro Fee): Genicular Nerve Block
--- NOTE | 2025-01-29 13:30 | P.NB_ITS ---
Nerve Block Nerve Block Time Seen by Provider: 10:00 Date Seen: 01/29/25 Type of block requested by surgeon for post-operative analgesia: adductor canal Side: left Time out performed: Yes Verification of patient name: Yes Verification of date of : Yes Site marking: site marked Name of person performing procedure: [place] Continuous monitoring Was continuous monitoring of O2 sat, B/P, intensive care unit registered nurse, recorded every 15 minutes?: Yes Procedure Checklist: sterile prep, needles and gloves Ultrasound guided. Images saved: Yes Medications given in 5ml increments after negative aspiration: Marcaine %: 0.25 mL: 15 Needle gauge: 20 Precedex (mcg): 25 Patient tolerated procedure well: Yes Block Charges Block Charge (with Pro Fee): Femoral Nerve Use of Ultrasound Machine for Block: Yes- US Guidance/pain block
[2025-01-29] MEDS: LACTATED RINGERS 1000 ML 1,000 ML 35 ML IV (13:49)
[2025-01-29] MEDS: CEFAZOLIN 1 GM in 0.9 % SODIUM CHLORIDE Mini-bag 100 ML IVPB (17:10)
[2025-01-29] MEDS: ROSUVASTATIN CALCIUM 10 MG TABLET PO (17:16)
--- NOTE | 2025-01-29 17:48 | PC.NURSE ---
Addendum entered by Alysa Brewster RN 01/29/25 18:25: pt reported pain 5/10, prn med given, Dressig CDI. pt on reg diet, diet tolerated Original Note: Pt caeme to floor at 1400 a/o x4, SBA w walker and gait belt. pt reports pain 3/10, active ice applied. Pt is up in chair at this time
[2025-01-29] MEDS: SENNOSIDES 1 TAB TABLET 2 TAB PO (20:52)
[2025-01-29] MEDS: ASPIRIN 81 MG TABLET EC PO (20:52)
[2025-01-29] MEDS: MONTELUKAST 10 MG TABLET PO (20:52)
--- NOTE | 2025-01-29 23:18 | PC.NURSE ---
Patient alert and oriented x4. Able to communicate needs. Pain was effectively managed by PRN and scheduled pain meds. Ambulates with Ax1 with walker and gait belt to the bathroom. Surgical site intact with no drainage noted. LR at 75/hr. Patient encouraged to use IS for shallow breathing which she was cooperative with. Uses IS independently. Other vitals WNL.
--- NOTE | 2025-01-30 00:11 | PM.IMCN1 ---
Date of Consult Patient: [facility] Patient Consult date: 01/29/25 Requesting Physician: Orthopedics Primary Care Provider: Benito Jarrett MD Consult Narrative Narrative: Shirley Granger is a 79 year old female admitted to the hospital for left total knee arthroplasty. Procedures performed by Dr. Norris today. Requests consultation for management of medical problems with surgery. She reports generally doing well after surgery. She is having some knee pain which is manageable. No nausea. She has been feeling well preoperatively she came to the hospital. She had a preop evaluation which showed no significant concerns for her paco op management with surgery. No previous problems with anesthesia, bleeding or clotting problems. Review of Systems Narrative: No recent illness or injury. No new concerns. 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0 - Age-related osteoporosis without current pathological fracture (ICD-10) Sleep apnea ?G47.30 - Sleep apnea, unspecified (ICD-10) History of gestational diabetes mellitus (GDM) (05/27/11) ?Z86.32 - Personal history of gestational diabetes (ICD-10) Surgical History (Updated 01/30/25 @ 00:17 by Clarence Barbosa MD) History of left knee replacement (01/29/25) ?Z96.652 - Presence of left artificial knee joint (ICD-10) History of arthroscopy of right shoulder (11/06/91) ?Z98.890 - Other specified postprocedural states (ICD-10) Status post left foot surgery ?Z98.890 - Other specified postprocedural states (ICD-10) History of arthroscopy of right knee (01/11/18) ?Z98.890 - Other specified postprocedural states (ICD-10) S/P left knee arthroscopy (11/12/21) ?Z98.890 - Other specified postprocedural states (ICD-10) History of bunionectomy ?Z98.890 - Other specified postprocedural states (ICD-10) History of nasal surgery ?Z98.890 - Other specified postprocedural states (ICD-10) Hx of appendectomy ?Z90.49 - Acquired absence of other specified parts of digestive tract (ICD-10) Status post manipulation of deviated nasal septum (05/27/11) ?Z98.890 - Other specified postprocedural states (ICD-10) ?Z87.09 - Personal history of other diseases of the respiratory system (ICD-10) History of repair of rotator cuff (05/27/11) ?Z98.890 - Other specified postprocedural states (ICD-10) Family History Mother Aneurysm High blood pressure Cerebral hemorrhage Brother Lung cancer Diabetes Alcohol dependence Emphysema lung H/O heart artery stent Father Drug abuse Heart problem Maternal Grandmother High blood pressure Stroke Maternal Grandfather High blood pressure Stroke Social History (Updated 01/30/25 @ 00:14 by Clarence Barbosa MD) Narrative: She lives in [place]. She plans to stay with a nephew in [place] for recovery for about a week. Her nephew has 2 steps into the house and 6 steps into his basement and she plans to live in his basement for her recovery time. She does not smoke. She does not drink alcohol. What is your current living situation?: I presently have a place to live Problems where you live: no known problems In the past 12 months, utilities in danger of being shut off: no In past 12 months, lack of transportation kept you from medical appts, meetings, work, or getting things needed for daily living: no In the past 12 mos, have been you worried that your food would run out before you had money to buy more?: never true In the past 12 mos, the food you bought just didn't last and you didn't have money to buy more?: never true Highest level of school completed/degree received: Master's degree Smoking Status: Never smoker Do you use any of these nicotine containing products: None Second hand tobacco smoke exposure: No How often do you have a drink containing alcohol: 2-4 times a month Alcohol type: wine How many standard drinks containing alcohol do you have on a typical day: 1 or 2 How often do you have six or more drinks on one occasion: Never AUDIT-C Alcohol total score: 2 Non-prescribed substance use: denies use Caffeine: Yes (daily soda) How often does anyone, including family, friends and others, physically hurt you: never How often does anyone, including family, friends and others, insult or talk down to you: never How often does anyone, including family, friends and others, threaten you with harm: never How often does anyone, including family, friends and others, scream or curse at you: never service: No Meds Home Medications and Allergies Home Medications ?Medication ?Instructions ?Recorded ?Confirmed ?Type calcium carb-ergocalciferol (vit 1 tab PO BID 10/22/21 01/29/25 History D2) 600 mg calcium-200 unit tablet estradiol 0.01% (0.1 mg/gram) 1 vaginal PRN 10/22/21 01/24/25 History vaginal cream flaxseed oil-omega 3,6,9-fatty 1 cap PO DAILY 10/22/21 01/29/25 History acids 1,300 mg-670 mg-155 mg capsule cetirizine 10 mg capsule (Zyrtec) 10 mg PO QDAY PRN 02/03/24 01/29/25 History omeprazole 20 mg capsule,delayed 20 mg PO DAILY 02/03/24 01/29/25 History release valsartan 80 mg tablet (Diovan) 80 mg PO QDAY #90 tabs 12/12/24 01/29/25 Rx raloxifene 60 mg tablet 60 mg PO DAILY #90 tabs 12/13/24 01/29/25 Rx fluticasone propionate 50 1 spray intranasal DAILY #48 grams 12/19/24 01/29/25 Rx mcg/actuation nasal spray,suspension aspirin 81 mg tablet,delayed 81 mg PO BID #60 tabs 01/23/25 01/29/25 Rx release (Adult Aspirin Regimen) oxycodone 5 mg tablet 5 mg PO Q4-8H PRN pain #40 tabs 01/23/25 01/29/25 Rx sennosides 8.6 mg-docusate sodium 1 tab-cap PO QHS #15 tabs 01/23/25 01/29/25 Rx 50 mg tablet (Senna-S) amlodipine 10 mg tablet 10 mg PO DAILY #90 tabs 01/24/25 01/29/25 Rx gabapentin 300 mg capsule 300 mg PO QPM #30 caps 01/24/25 01/29/25 Rx acetaminophen 500 mg capsule 500 - 1,000 mg (1 - 2 x 500 mg) PO 01/29/25 Rx Q6H PRN #100 caps aspirin 81 mg tablet,delayed 81 mg PO BID #60 tabs 01/29/25 Rx release modafinil 200 mg tablet 200 mg PO DAILY Narcolepsy 01/29/25 01/29/25 History montelukast 10 mg tablet 10 mg PO HS 01/29/25 01/29/25 History oxycodone 5 mg tablet 2.5 - 5 mg (0.5 - 1 x 5 mg) PO 01/29/25 Rx Q4-6H PRN pain #42 tabs rosuvastatin 10 mg tablet 10 mg PO QPM 01/29/25 01/29/25 History sennosides 8.6 mg-docusate sodium 1 - 4 tab-cap (1 - 4 x 8.6-50 mg) 01/29/25 Rx 50 mg tablet (Senna-S) PO BID PRN constipation #60 tabs Allergies Allergy/AdvReac Type Severity Reaction Status Date / Time Sulfa (Sulfonamide Allergy mouth Verified 01/29/25 08:45 Antibiotics) swells up Exam Narrative: Exam Narrative: She is alert appears in no distress. She gives her own history. Oropharynx is normal. Respirations are clear to auscultation. Cardiovascular: S1, S2, regular rhythm. Abdomen: Bowel sounds active. Abdomen is soft without tenderness. Extremities without edema. Knee incision is clean and dry with a bandage on it motion, strength, sensation and pulses in both feet and ankles are normal. Const: Vital Signs, click to edit/add: Vital Signs - 24 hr 01/29/25 09:35 01/29/25 09:45 01/29/25 09:50 Temperature 98.2 F Pulse Rate 88 72 68 Pulse Rate [Right Pulse Oximeter] Respiratory Rate 16 14 12 Blood Pressure 166/82 H 151/77 H 122/91 H Blood Pressure [Le ft Arm] Pulse Oximetry 96 96 98 Oxygen Delivery Me thod Room Air Nasal Cannula Nasal Cannula Oxygen Flow Rate 3 3 Fraction of Inspir ed Oxygen 01/29/25 09:55 01/29/25 10:00 01/29/25 10:05 Temperature Pulse Rate 69 68 72 Pulse Rate [Right Pulse Oximeter] Respiratory Rate 12 12 12 Blood Pressure 147/71 H 127/69 115/64 Blood Pressure [Le ft Arm] Pulse Oximetry 99 99 99 Oxygen Delivery Me thod Nasal Cannula Nasal Cannula Nasal Cannula Oxygen Flow Rate 3 3 3 Fraction of Inspir ed Oxygen 01/29/25 10:20 01/29/25 13:00 01/29/25 13:05 Temperature 98.0 F Pulse Rate 70 79 76 Pulse Rate [Right Pulse Oximeter] Respiratory Rate 12 14 14 Blood Pressure 103/58 L 111/62 112/67 Blood Pressure [Le ft Arm] Pulse Oximetry 98 92 92 Oxygen Delivery Me thod Nasal Cannula Nasal Cannula Nasal Cannula Oxygen Flow Rate 3 2 2 Fraction of Inspir ed Oxygen 100 100 01/29/25 13:10 01/29/25 13:15 01/29/25 13:20 Temperature Pulse Rate 76 76 76 Pulse Rate [Right Pulse Oximeter] Respiratory Rate 14 16 16 Blood Pressure 115/65 114/61 117/61 Blood Pressure [Le ft Arm] Pulse Oximetry 93 97 96 Oxygen Delivery Me thod Nasal Cannula Nasal Cannula Room Air Oxygen Flow Rate 2 2 Fraction of Inspir ed Oxygen 100 100 01/29/25 13:25 01/29/25 13:30 01/29/25 14:00 Temperature 97.0 F L 96.0 F L Pulse Rate 77 78 Pulse Rate [Right Pulse Oximeter] 83 Respiratory Rate 16 16 16 Blood Pressure 121/68 123/61 Blood Pressure [Le ft Arm] 134/79 Pulse Oximetry 95 97 90 Oxygen Delivery Me thod Room Air Room Air Room Air Oxygen Flow Rate Fraction of Inspir ed Oxygen 01/29/25 14:15 01/29/25 14:30 01/29/25 14:45 Temperature 96.7 F L 96.5 F L 96.9 F L Pulse Rate Pulse Rate [Right Pulse Oximeter] 84 82 82 Respiratory Rate 16 14 16 Blood Pressure Blood Pressure [Le ft Arm] 157/92 H 137/76 141/71 H Pulse Oximetry 91 92 92 Oxygen Delivery Me thod Room Air Room Air Room Air Oxygen Flow Rate Fraction of Inspir ed Oxygen 01/29/25 15:00 01/29/25 15:00 01/29/25 15:00 Temperature 96.9 F L Pulse Rate Pulse Rate [Right Pulse Oximeter] 84 Respiratory Rate 16 Blood Pressure Blood Pressure [Le ft Arm] 141/71 H Pulse Oximetry 91 91 91 Oxygen Delivery Me thod Room Air Room Air Oxygen Flow Rate Fraction of Inspir ed Oxygen 01/29/25 15:45 01/29/25 16:45 01/29/25 17:35 Temperature 96.8 F L 96.1 F L Pulse Rate Pulse Rate [Right Pulse Oximeter] 95 93 96 Respiratory Rate 18 18 16 Blood Pressure Blood Pressure [Le ft Arm] 137/92 H 129/79 138/82 Pulse Oximetry 91 90 96 Oxygen Delivery Me thod Room Air Room Air Room Air Oxygen Flow Rate Fraction of Inspir ed Oxygen 01/29/25 18:45 01/29/25 19:36 Temperature 97.3 F L 98.3 F Pulse Rate Pulse Rate [Right Pulse Oximeter] 96 96 Respiratory Rate 14 14 Blood Pressure Blood Pressure [Le ft Arm] 130/78 134/91 H Pulse Oximetry 92 94 Oxygen Delivery Me thod Room Air Room Air Oxygen Flow Rate Fraction of Inspir ed Oxygen Assessment and Plan Assessment and plan (1) History of left knee replacement: Problem comment: Left total knee arthroplasty - subvastus; no tourniquet; cemented. Dr. Norris, 01/29/25 Status: Acute (2) Hypertension: Problem comment: Resume blood pressure medications as blood pressure allows. Status: Acute (3) Medication management: Problem comment: Patient has multiple medications with recent changes. Continue to monitor and resume medications as needed. Status: Acute Plan Admit for postoperative recovery, medication management, therapy. Anticipate discharge to home with her nephew if doing well tomorrow. Total Time Spent Total Time Spent: Total time spent today is 40 minutes in reviewing outside records and coordination of care and discussing with patient ongoing management of medications perioperatively
[2025-01-30 00:31] VITALS: BP 147/78; PULSE 89; RESP 18; TEMP 37.1; O2SAT 92
[2025-01-30] MEDS: CEFAZOLIN 1 GM in 0.9 % SODIUM CHLORIDE Mini-bag 100 ML IVPB ×2 (00:47→09:28)
[2025-01-30] MEDS: ACETAMINOPHEN 500 MG TABLET 1000 MG PO ×2 (02:10→08:14)
--- NOTE | 2025-01-30 04:37 | PC.NURSE ---
shift note: pt is AOx4. pt is pleasant & cooperative w/ cares. Afebrile. pt AMB to BR w/ SBA/ +1 assist w/ GB & walker. pt voided. denies N/V. pt rated greater than 5/10; scheduled and prn pain med given- see EMAR. L surgical knee dressing C/D/I/ Pt tolerated bilateral foot SCDs throughout HS.
[2025-01-30] MEDS: OMEPRAZOLE 20 MG CAPSULE DR PO (06:24)
[2025-01-30 07:00] VITALS: PULSE 81; RESP 16; O2SAT 95
[2025-01-30 08:00] VITALS: BP 169/78; PULSE 81; RESP 16; TEMP 37; O2SAT 95
[2025-01-30] MEDS: VALSARTAN 80 MG TABLET PO (08:18)
[2025-01-30] MEDS: SENNOSIDES 1 TAB TABLET 2 TAB PO (08:18)
[2025-01-30] MEDS: ASPIRIN 81 MG TABLET EC PO (08:19)
[2025-01-30] MEDS: AMLODIPINE 10 MG TABLET PO (08:19)
[2025-01-30] MEDS: ONDANSETRON 2 MG/ML inj 4 MG IVP (09:27)
--- NOTE | 2025-01-30 11:01 | PC.NURSE ---
pt a/o x4, 3-08/22 pain reported throughout shift, pain meds given as prescribed. pt reported pain improvement. pt on reg diet, Nausea reported by pt, prn Zofran given. No complaints of nausea at this time. IV removed cath intact. D/C education given both written and verbally, no questions from pt at this time, pt left via wheelchair accompanied by staff and family member
--- NOTE | 2025-01-30 12:13 | P.ORPN_ITS ---
Subjective Subjective Date Seen: 01/30/25 Principal diagnosis: Status postop day 1 left total knee arthroplasty Interval history: Patient reports doing okay. Currently working with physical therapy during our conversation. No acute events over night. Pain managed with scheduled and PRN medications, ice. DVT prophylaxis: 81 mg aspirin by mouth twice daily, SCDs, walking. Denies fevers, chills, aches, N/V, CP, SOB/STRINGER, or lightheadedness. Concerned that she will not be able to perform a revolution on the [employer] bike. Wondering if she can restart diclofenac at home postoperatively. She has not been taking this for a few days, which notably exacerbates her foot osteoarthritis Ortho Exam Narrative Exam Narrative: -Patient appears comfortable; she appears to be in discomfort during her physical therapy session. -Alert and oriented times 3 -Operative knee moderately swollen; soft tissues supple; no ecchymosis; no erythematous streaking Warmth appropriate -Surgical dressing clean, dry, intact; no drainage -Bilateral calves soft; no significant swelling, edema, tenderness, erythema, discoloration, warmth, or palpable cords -2+ DP/PT pulses, intact dermatomes and myotomes distally (5/5 strength) Const Vital Signs, click to edit/add: Vital Signs - 24 hr 01/29/25 13:00 01/29/25 13:05 01/29/25 13:10 Temperature 98.0 F Pulse Rate 79 76 76 Pulse Rate [Right Pulse Oximeter] Respiratory Rate 14 14 14 Blood Pressure 111/62 112/67 115/65 Blood Pressure [Left Arm] Pulse Oximetry 92 92 93 Oxygen Delivery Method Nasal Cannula Nasal Cannula Nasal Cannula Oxygen Flow Rate 2 2 2 Fraction of Inspired Oxygen 100 100 100 01/29/25 13:15 01/29/25 13:20 01/29/25 13:25 Temperature Pulse Rate 76 76 77 Pulse Rate [Right Pulse Oximeter] Respiratory Rate 16 16 16 Blood Pressure 114/61 117/61 121/68 Blood Pressure [Left Arm] Pulse Oximetry 97 96 95 Oxygen Delivery Method Nasal Cannula Room Air Room Air Oxygen Flow Rate 2 Fraction of Inspired Oxygen 100 01/29/25 13:30 01/29/25 14:00 01/29/25 14:15 Temperature 97.0 F L 96.0 F L 96.7 F L Pulse Rate 78 Pulse Rate [Right Pulse Oximeter] 83 84 Respiratory Rate 16 16 16 Blood Pressure 123/61 Blood Pressure [Left Arm] 134/79 157/92 H Pulse Oximetry 97 90 91 Oxygen Delivery Method Room Air Room Air Room Air Oxygen Flow Rate Fraction of Inspired Oxygen 01/29/25 14:30 01/29/25 14:45 01/29/25 15:00 Temperature 96.5 F L 96.9 F L Pulse Rate Pulse Rate [Right Pulse Oximeter] 82 82 Respiratory Rate 14 16 Blood Pressure Blood Pressure [Left Arm] 137/76 141/71 H Pulse Oximetry 92 92 91 Oxygen Delivery Method Room Air Room Air Room Air Oxygen Flow Rate Fraction of Inspired Oxygen 01/29/25 15:00 01/29/25 15:00 01/29/25 15:45 Temperature 96.9 F L Pulse Rate Pulse Rate [Right Pulse Oximeter] 84 95 Respiratory Rate 16 18 Blood Pressure Blood Pressure [Left Arm] 141/71 H 137/92 H Pulse Oximetry 91 91 91 Oxygen Delivery Method Room Air Room Air Oxygen Flow Rate Fraction of Inspired Oxygen 01/29/25 16:45 01/29/25 17:35 01/29/25 18:45 Temperature 96.8 F L 96.1 F L 97.3 F L Pulse Rate Pulse Rate [Right Pulse Oximeter] 93 96 96 Respiratory Rate 18 16 14 Blood Pressure Blood Pressure [Left Arm] 129/79 138/82 130/78 Pulse Oximetry 90 96 92 Oxygen Delivery Method Room Air Room Air Room Air Oxygen Flow Rate Fraction of Inspired Oxygen 01/29/25 19:36 01/29/25 22:20 01/30/25 00:31 Temperature 98.3 F 98.8 F Pulse Rate Pulse Rate [Right Pulse Oximeter] 96 81 89 Respiratory Rate 14 18 18 Blood Pressure Blood Pressure [Left Arm] 134/91 H 141/75 H 147/78 H Pulse Oximetry 94 93 92 Oxygen Delivery Method Room Air Room Air Room Air Oxygen Flow Rate Fraction of Inspired Oxygen 01/30/25 00:31 01/30/25 00:31 01/30/25 07:00 Temperature Pulse Rate Pulse Rate [Right Pulse Oximeter] 81 Respiratory Rate 18 16 Blood Pressure Blood Pressure [Left Arm] Pulse Oximetry 92 92 Oxygen Delivery Method Room Air Oxygen Flow Rate Fraction of Inspired Oxygen 01/30/25 07:00 01/30/25 08:00 Temperature 98.6 F Pulse Rate Pulse Rate [Right Pulse Oximeter] 81 Respiratory Rate 16 16 Blood Pressure Blood Pressure [Left Arm] 169/78 H Pulse Oximetry 95 95 Oxygen Delivery Method Room Air Room Air Oxygen Flow Rate Fraction of Inspired Oxygen Assessment and Plan Assessment and plan (1) History of left knee replacement: Problem details: Left total knee arthroplasty - subvastus; no tourniquet; cemented. Dr. Norris, 01/29/25 Status: Acute (2) Hypertension: Problem details: Resume blood pressure medications as blood pressure allows. Status: Acute (3) Medication management: Problem details: Patient has multiple medications with recent changes. Continue to monitor and resume medications as needed. Status: Acute Plan - Complete 23 hour perioperative antibiotics. - PT/OT consult for education and assistance. - Social work consult for discharge planning - Prescribed analgesics as needed - DVT prophylaxis: 81 mg aspirin by mouth twice daily, walking, and SCDs - She may restart her diclofenac at home. - Anticipation is for discharge to home with family/friends today 01/30/2025 if the patient remains medically stable, pain is controlled, and they are safe with mobilization.
== END 2025-01-30 10:57 | disposition home or self-care (01) ==
LOC: OR 08:45 → MEDSURG 08:46
PROVIDERS: PCP Internal Medicine; Visit Provider Orthopaedic Surgery Sports Medicine
PROC: (CPT 27447; principal; 2025-01-29 11:00)
DX: M17.12 Unilateral primary osteoarthritis, left knee (principal); G89.18 Other acute postprocedural pain; I35.0 Nonrheumatic aortic (valve) stenosis; G47.30 Sleep apnea, unspecified; I10 Essential (primary) hypertension; Z79.899 Other long term (current) drug therapy
CPT/HCPCS: 27447; 01402; 64447; 64454; 73560; 76942; 94761; 97110; 97116; 97162; 97165; 97535; 99100; A9270; C1776; J0665; J0690; J1100; J1171; J2250; J2371; J2405; J2704; J3010; J7120